=== PATIENT | female | born 1980 | race Caucasian/White ===

== ENCOUNTER 2016-05-22 13:12 | Emergency (ER) | payer OTHER ==
[~2016-05-22] VITALS: Ht 157.5 cm; Wt 86.2 kg
[~2016-05-22 13:12] MED LIST: AZIT250T PO; HYDR5SUS PO; PRED50TA PO; PROAIR HFA8.5 GM INH; SULF1TAB24 PO
[2016-05-22 13:15] VITALS: BP 143/84
--- NOTE | 2016-05-22 13:53 | RAD ---
Left knee radiographs History: Fell at 1245 hours. Comparison: 06/21/2007. Findings: AP, lateral, oblique, and merchant view of the left knee. No acute fracture or dislocation is identified. No joint effusion is seen. Impression: No acute osseous traumatic injury identified.
[2016-05-22] MEDS ORDERED: NEOMY/BACITR/POLYMYXIN OINT PACKET. TP ONE (14:00)
--- NOTE | 2016-05-22 14:00 | PHYS DOC ---
Past Medical History Past Medical History: Bronchitis, Kidney Stone, Sinusitis Past Surgical History: Cholecystectomy, Tubal ligation, Other Additional Past Surgical Histo: renal stent, sinus surgery Alcohol Use: Rarely Drug Use: None Adult General Chief Complaint Chief Complaint: KNEE INJURY HPI HPI Patient is a 36 year old male presents emergency department stating that she was coming off of a sidewalk to walk up the stairs when she fell injuring her left knee. She does have an abrasion noted over the knee part as well as abrasions down the doherty. She states that she is having increased pain around the knee. Denies pain in the lower leg or ankle area. Patient states her last tetanus immunization was 2 years ago. There is no drainage or discharge noted from the site although there is abrasions noted. Patient denies any loss of bowel or bladder. She denies any back pain or discomfort. She denies any numbness or tingling into her lower extremities. Review of Systems Review of Systems Constitutional: Denies fever or chills [] Eyes: Denies change in visual acuity, redness, or eye pain [] HENT: Denies nasal congestion or sore throat [] Respiratory: Denies cough or shortness of breath [] Cardiovascular: No additional information not addressed in HPI [] Musculoskeletal: Denies back pain. Complaint of left knee pain and discomfort. Integument: Denies rash or skin lesions. Patient with 2 abrasions noted on the left knee. Neurologic: Denies headache, focal weakness or sensory changes [] Current Medications Current Medications Current Medications Medications (Trade) Dose Ordered Sig/Travis Start Time Stop Time Status Last Admin Dose Admin Neomycin/ Polymyxin/ Bacitracin (Triple Antibiotic Ointment) 1 pkt 1X ONCE 05/22/16 14:00 05/22/16 14:01 UNV Allergies Allergies Allergies Coded Allergies Type Severity Reaction Last Updated Verified No Known Drug Allergies 01/16/15 No Physical Exam Physical Exam Constitutional: Well developed, well nourished, no acute distress, non-toxic appearance. [] HENT: Normocephalic, atraumatic, bilateral external ears normal, oropharynx moist, no oral exudates, nose normal. [] Eyes: PERRLA, EOMI, conjunctiva normal, no discharge. [] Neck: Normal range of motion, no tenderness, supple, no stridor. [] Cardiovascular:Heart rate regular rhythm Lungs & Thorax: No respiratory distress noted Skin: Warm, dry, no erythema, no rash. [] Back: No tenderness Extremities: Left knee tenderness, no cyanosis, no clubbing, ROM intact, no edema. Patient with positive Tank, positive valgus, positive arcus, peripheral pulses 2+ cap refill brisk less than 2 seconds. Neurologic: Alert and oriented X 3, normal motor function, normal sensory function, no focal deficits noted. [] Psychologic: Affect normal, judgement normal, mood normal. [] Current Patient Data Vital Signs Vital Signs Date Time Temp Pulse Resp B/P Pulse Ox O2 Delivery O2 Flow Rate FiO2 05/22/16 13:15 98.1 122 20 98 Room Air 98.1 EKG EKG [] Radiology/Procedures Radiology/Procedures [] Course & Med Decision Making Course & Med Decision Making Pertinent Labs and Imaging studies reviewed. (See chart for details) Patient provided with hydrocodone here in the emergency department. She'll be placed in a knee immobilizer. The abrasions were cleaned with soap and water and antibiotic ointment applied to the sites. Patient will be discharged home in stable condition since symptoms to return back to emergency department as been provided. Patient will be provided with any movement orthopedic to follow- up within the next 3-5 days. She may also take Tylenol or ibuprofen at home for pain and discomfort. Ice packs on 20 minutes off 20 minutes several times a day and elevation as much as possible. [] Dragon Disclaimer Dragon Disclaimer This electronic medical record was generated, in whole or in part, using a voice recognition dictation system. Departure Departure Impression: Primary Impression: Fall Additional Impression: Knee pain, acute Disposition: 01 HOME, SELF-CARE Condition: STABLE Referrals: NIYAH GÓMEZ (PCP) MARIO VASQUEZ MD Patient Instructions: Abrasion, [id number], Knee Pain, [id number] Additional Instructions: Activity as tolerated. Ice packs on 20 minutes off 20 minutes several times a day. Elevation as much as possible. With a knee immobilizer to help with pain and discomfort until you follow up with orthopedic. Tylenol or ibuprofen for pain and discomfort. Follow-up with orthopedic in the next week. Return back to emergency prior signs symptoms of become worse. Problem Qualifiers PALMIRA ESPARZA NP May 22, 2016 14:00
[2016-05-22] MEDS ORDERED: HYDROCODONE/APAP 5/325MG TABLET. PO ONE (14:15)
== END 2016-05-22 14:14 | disposition home or self-care (01) ==
LOC: ER 13:12
DX: M25.562 Pain in left knee (principal); Z87.442 Personal history of urinary calculi; Z90.49 Acquired absence of other specified parts of digestive tract; Z98.51 Tubal ligation status; Z96.0 Presence of urogenital implants; W10.9XXA Fall (on) (from) unspecified stairs and steps, initial encounter; Y93.01 Activity, walking, marching and hiking; Y99.8 Other external cause status; Y92.480 Sidewalk as the place of occurrence of the external cause
CPT/HCPCS: 29505; 73564; 99284-25

== ENCOUNTER → 2016-07-15 | Outpatient (CLI) | payer OTHER ==
--- NOTE | 2016-07-15 11:11 | KCIC ---
Examination:Bilateral ribs and PA view of the chest HISTORY History of acute bronchitis, cough, left mid lower chest wall pain felt a pop when coughing. COMPARISON Chest x-ray from 04/05/2016. FINDINGS The cardiomediastinal grossly appears unremarkable. There is no acute infiltrate or visualized pneumothorax identified. No evidence of displaced right bilateral rib fractures identified. IMPRESSION 1. No acute cardiopulmonary findings. 2. No evidence of displaced rib fractures identified. Electronically signed by: Tonio Horvath (Jul 15, 2016 11:09:57)
== END | disposition home or self-care (01) ==
LOC: KCIC 09:15
PROVIDERS: ATTEND Physician Assistant Medical
DX: J20.9 Acute bronchitis, unspecified (principal); R07.89 Other chest pain
CPT/HCPCS: 71111

== ENCOUNTER 2016-08-18 18:41 | Emergency (ER) | payer OTHER ==
[~2016-08-18] VITALS: Ht 157.5 cm; Wt 86.2 kg
[2016-08-18 19:02] VITALS: BP 142/96
[2016-08-18] MEDS ORDERED: NAPR550T PO (19:29)
[2016-08-18] MEDS ORDERED: HYDR-971 PO (19:29)
[2016-08-18] MEDS ORDERED: ORPH100T PO (19:29)
--- NOTE | 2016-08-18 19:29 | PHYS DOC ---
Past Medical History Past Medical History: Bronchitis, Kidney Stone, Sinusitis Past Surgical History: Cholecystectomy, Tubal ligation, Other Additional Past Surgical Histo: renal stent, sinus surgery Alcohol Use: Rarely Drug Use: None Adult General Chief Complaint Chief Complaint: LOWER BACK PAIN OR INJURY HPI HPI Patient is a 36 year old obese female who comes emergency Department today with a complaint of atraumatic left lower back pain that essentially began last night when she was bending over and folding laundry. Patient states that she attempted to get out of bed this morning and felt a tightening and pain in her left lower back. Patient does have a history of intermittent low back pain with sciatica. She states that this pain does not radiate. She denies saddle anesthesia or incontinence of urine and bowel. Patient denies history of spinal column fractures or spinal cord injuries. She denies history of neuromuscular diseases. Review of Systems Review of Systems Constitutional: Denies fever or chills [] Eyes: Denies change in visual acuity, redness, or eye pain [] HENT: Denies nasal congestion or sore throat [] Respiratory: Denies cough or shortness of breath [] Cardiovascular: No additional information not addressed in HPI [] GI: Denies abdominal pain, nausea, vomiting, bloody stools or diarrhea [] : Denies dysuria or hematuria [] Musculoskeletal: Denies back pain or joint pain [] Integument: Denies rash or skin lesions [] Neurologic: Denies headache, focal weakness or sensory changes [] Endocrine: Denies polyuria or polydipsia [] Current Medications Current Medications Current Medications Medications (Trade) Dose Ordered Sig/Travis Start Time Stop Time Status Last Admin Dose Admin Ketorolac Tromethamine (Toradol Im) 60 mg 1X ONCE 08/18/16 19:30 08/18/16 19:31 DC 08/18/16 19:30 60 MG Orphenadrine Citrate (Norflex) 60 mg 1X ONCE 08/18/16 19:30 08/18/16 19:31 DC 08/18/16 19:30 60 MG Allergies Allergies Allergies Coded Allergies Type Severity Reaction Last Updated Verified No Known Drug Allergies 01/16/15 No Physical Exam Physical Exam Constitutional: Well developed, well nourished, mild distress, non-toxic appearance. HENT: Normocephalic, atraumatic, bilateral external ears normal, oropharynx moist, no oral exudates, nose normal. [] Eyes: PERRLA, EOMI, conjunctiva normal, no discharge. [] Neck: Normal range of motion, no tenderness, supple, no stridor. [] Cardiovascular:Heart rate regular rhythm, no murmur [] Lungs & Thorax: Bilateral breath sounds clear to auscultation [] Abdomen: Bowel sounds normal, soft, no tenderness, no masses, no pulsatile masses. [] Skin: Warm, dry, no erythema, no rash. [] Back: Patient's back is normal in appearance. There are no overlying skin lesions suggestive of shingles. There is no CVA tenderness. There is tenderness to palpation to the left paraspinous soft tissues at the level of L3-S1. There is no palpable defect, deformity or spasm. Patient's I have a midline tenderness or tenderness to the right side of her back. Extremities: No tenderness, no cyanosis, no clubbing, ROM intact, no edema. [] Neurologic: Alert and oriented X 3, normal motor function, normal sensory function, no focal deficits noted. [] Psychologic: Affect normal, judgement normal, mood normal. [] Current Patient Data Vital Signs Vital Signs Date Time Temp Pulse Resp B/P Pulse Ox O2 Delivery O2 Flow Rate FiO2 08/18/16 19:02 98.2 112 18 98 Room Air 98.2 EKG EKG [] Radiology/Procedures Radiology/Procedures [] Course & Med Decision Making Course & Med Decision Making Pertinent Labs and Imaging studies reviewed. (See chart for details) [] Dragon Disclaimer Dragon Disclaimer This electronic medical record was generated, in whole or in part, using a voice recognition dictation system. Departure Departure Impression: Primary Impression: Lumbosacral strain Disposition: 01 HOME, SELF-CARE Condition: GOOD Referrals: NO PCP (PCP) Patient Instructions: Lumbosacral Strain Additional Instructions: 1. Take the medications as prescribed. 2. Review the discharge instructions provided for self-care and reasons to return to the emergency department. 3. Contact your primary care provider in the morning to schedule follow-up appointment to be seen by Tuesday or Tuesday of next week. Scripts Hydrocodone/Apap 5-325 ([place] 5-325 Tablet)1 Each Tablet1 Tab PO PRN Q6HRS PRN PAIN #15 TAB Prov:TANO AMAYA 08/18/16 Orphenadrine Citrate 100 Mg Tablet.er100 Mg PO twice a day muscle relaxer #14 Prov:TANO AMAYA 08/18/16 Naproxen Sodium (Anaprox Ds)550 Mg [id number] Mg PO twice a day back pain #20 Prov:TANO AMAYA 08/18/16 Problem Qualifiers Primary Impression: Lumbosacral strain Encounter type: initial encounter Qualified Code: S39.012A - Strain of muscle, fascia and tendon of lower back, initial encounter TANO AMAYA Aug 18, 2016 19:29
[2016-08-18] MEDS ORDERED: KETOROLAC TROMETHAMINE 60 MG/2 ML INJ. IM ONE (19:30)
[2016-08-18] MEDS ORDERED: ORPHENADRINE CITRATE 60 MG/2 ML VIAL. IM ONE (19:30)
[2016-08-19] MEDS ORDERED: DIAZ5TAB PO (13:05)
== END 2016-08-18 19:35 | disposition home or self-care (01) ==
LOC: ER 18:41
DX: S39.012A Strain of muscle, fascia and tendon of lower back, initial encounter (principal); Z90.49 Acquired absence of other specified parts of digestive tract; Z98.51 Tubal ligation status; Z87.442 Personal history of urinary calculi; X50.9XXA Other and unspecified overexertion or strenuous movements or postures, initial encounter; Y93.89 Activity, other specified; Y92.89 Other specified places as the place of occurrence of the external cause; Y99.8 Other external cause status
CPT/HCPCS: 96372; 99284; J1885; J2360

== ENCOUNTER 2016-08-19 09:24 | Emergency (ER) | payer OTHER ==
[~2016-08-19 09:24] MED LIST changes: +HYDR-971 PO; +NAPR550T PO; +ORPH100T PO
[2016-08-19 10:50] VITALS: BP 142/106
[2016-08-19] MEDS ORDERED: ORPHENADRINE CITRATE 60 MG/2 ML VIAL. IM ONE (12:00)
[2016-08-19] MEDS ORDERED: KETOROLAC TROMETHAMINE 60 MG/2 ML INJ. IM ONE (12:00)
--- NOTE | 2016-08-19 12:54 | PHYS DOC ---
Past Medical History Past Medical History: Bronchitis, Kidney Stone, Sinusitis Past Surgical History: Cholecystectomy, Tubal ligation, Other Additional Past Surgical Histo: renal stent, sinus surgery Smoking: Less than 1pk/day Alcohol Use: Rarely Drug Use: None Adult General Chief Complaint Chief Complaint: LOWER BACK PAIN OR INJURY HPI HPI Patient is a 36 year old female who presents with left-sided low back pain starting yesterday. The pain radiates to the left hip. She denies any injury to her back. She has had nausea without vomiting due to the pain. She denies incontinence or saddle anesthesia. She has not had any abdominal pain, urinary symptoms, focal weakness, or numbness. The patient has a history of left hip and knee arthritis and left-sided sciatica. Patient was seen here yesterday for her back pain and given Norflex and Toradol in the emergency department. She states that this helps to relieve her pain. She was prescribed Newborn, Flexeril, and naproxen for home. She states that the pain became worse again this morning when she tried to get out of bed. She denies any new injuries. Her PCP is Dr. Mckoy. Review of Systems Review of Systems Constitutional: Denies fever or chills. [] Eyes: Denies change in visual acuity, redness, or eye pain. [] HENT: Denies ear pain, nasal congestion or sore throat. [] Respiratory: Denies cough or shortness of breath. [] Cardiovascular: Denies chest pain, palpitations or edema. [] GI: Denies abdominal pain, vomiting, bloody stools or diarrhea. Reports nausea. : Denies dysuria, hematuria or urinary frequency. [] Musculoskeletal: Denies joint pain. Reports left-sided low back pain. Integument: Denies rash or skin lesions. [] Neurologic: Denies headache, focal weakness or sensory changes. Denies incontinence or saddle anesthesia. Endocrine: Denies polyuria or polydipsia. [] Psych: Denies anxiety or depression. [] All systems reviewed and negative unless otherwise stated in the HPI. Current Medications Current Medications Current Medications Medications (Trade) Dose Ordered Sig/Travis Start Time Stop Time Status Last Admin Dose Admin Ketorolac Tromethamine (Toradol Im) 60 mg 1X ONCE 08/19/16 12:00 08/19/16 12:03 DC 08/19/16 12:00 60 MG Morphine Sulfate 4 mg 1X ONCE 08/19/16 13:45 08/19/16 13:46 08/19/16 13:12 4 MG Orphenadrine Citrate (Norflex) 60 mg 1X ONCE 08/19/16 12:00 08/19/16 12:03 DC 08/19/16 12:00 60 MG Allergies Allergies Allergies Coded Allergies Type Severity Reaction Last Updated Verified No Known Drug Allergies 01/16/15 No Physical Exam Physical Exam Constitutional: Well developed, well nourished, no acute distress, non-toxic appearance. [] HENT: Normocephalic, atraumatic, oropharynx moist. [] Eyes: PERRLA, EOMI, conjunctiva normal, no discharge. [] Neck: Normal range of motion, no tenderness, supple, no stridor. [] Cardiovascular: Heart rate regular rhythm, no murmur. [] Lungs & Thorax: Bilateral breath sounds clear to auscultation without wheezes, rales, or rhonchi. [] Abdomen: Bowel sounds normal, soft, no tenderness, no masses, no pulsatile masses. [] Skin: Warm, dry, no erythema, no rash. [] Back: Lumbar midline tenderness, no CVA tenderness. Left lumbar paraspinal muscle tenderness and spasm. Extremities: No tenderness, ROM intact, no edema. Distal pulses equal bilaterally. Light touch sensation intact proximally and distally in the lower extremities and equal bilaterally. Neurologic: Alert and oriented X 3, normal motor function, normal sensory function, no focal deficits noted. [] Psychologic: Affect normal, judgement normal, mood normal. [] Current Patient Data Vital Signs Vital Signs Date Time Temp Pulse Resp B/P Pulse Ox O2 Delivery O2 Flow Rate FiO2 08/19/16 10:50 98.7 106 18 99 Room Air 98.7 EKG EKG [] Radiology/Procedures Radiology/Procedures [] Course & Med Decision Making Course & Med Decision Making Pertinent Labs and Imaging studies reviewed. (See chart for details) [] Dragon Disclaimer Dragon Disclaimer This electronic medical record was generated, in whole or in part, using a voice recognition dictation system. Departure Departure Impression: Primary Impression: Lumbosacral strain Disposition: HOME, SELF-CARE Condition: STABLE Referrals: NO PCP (PCP) Patient Instructions: Back Pain, Adult, [id number] Additional Instructions: Please take the prescribed muscle relaxer as directed. Do not drive or operate heavy machinery while taking pain medication or muscle relaxers. Please continue to take the hydrocodone and naproxen prescribed yesterday for your back pain. Please follow-up with your primary care doctor if your back pain continues. Return to the emergency department if you have any new or concerning symptoms. Scripts Diazepam (Valium)5 Mg Tablet5 Mg PO TID #20 TAB Prov:JACOB DIAL 08/19/16 Problem Qualifiers Primary Impression: Lumbosacral strain Encounter type: subsequent encounter Qualified Code: S39.012D - Strain of muscle, fascia and tendon of lower back, subsequent encounter JACOB DIAL Aug 19, 2016 12:54
[2016-08-19] MEDS ORDERED: DIAZ5TAB PO (13:05)
[2016-08-19] MEDS ORDERED: MORPHINE SULFATE 10 MG/ML VIAL. IM ONE (13:45)
[2016-08-19] MEDS ORDERED: MORPHINE SULFATE 4 MG/ML DISP.SYRIN. IM ONE (13:45)
== END 2016-08-19 13:20 | disposition home or self-care (01) ==
LOC: ER 09:24
DX: S39.012A Strain of muscle, fascia and tendon of lower back, initial encounter (principal); R11.0 Nausea; M17.9 Osteoarthritis of knee, unspecified; M16.12 Unilateral primary osteoarthritis, left hip; F17.200 Nicotine dependence, unspecified, uncomplicated; Z87.442 Personal history of urinary calculi; Z96.0 Presence of urogenital implants; X58.XXXA Exposure to other specified factors, initial encounter; Y93.89 Activity, other specified; Y92.89 Other specified places as the place of occurrence of the external cause; Y99.8 Other external cause status
CPT/HCPCS: 96372; 99284; J1885; J2270; J2360

== ENCOUNTER 2016-10-18 09:31 | Emergency (ER) | payer OTHER ==
[~2016-10-18] VITALS: Ht 157.5 cm; Wt 127.0 kg
[~2016-10-18 09:31] MED LIST changes: +DIAZ5TAB PO
[2016-10-18] MEDS ORDERED: MORPHINE SULFATE 4 MG/ML DISP.SYRIN. IM ONE (10:15)
[2016-10-18] MEDS ORDERED: IBUPROFEN 800 MG TABLET. PO ONE (10:15)
--- NOTE | 2016-10-18 10:16 | PHYS DOC ---
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 She states that she has 5 of them. She states over the weekend she's had increased pain and discomfort. She states that she took her hydrocodone and a muscle relaxer at 1:00 this morning with minimal relief. She states that she take ibuprofen around 3 AM. She states she has had no relief of pain or discomfort. Denies any numbness or tingling down to her lower extremities. She denies any trauma or injury. She denies any loss of bowel or bladder. Review of Systems Review of Systems Constitutional: Denies fever or chills [] Eyes: Denies change in visual acuity, redness, or eye pain [] HENT: Denies nasal congestion or sore throat [] Respiratory: Denies cough or shortness of breath [] Cardiovascular: No additional information not addressed in HPI [] GI: Denies abdominal pain, nausea, vomiting, bloody stools or diarrhea [] : Denies dysuria or hematuria [] Musculoskeletal: lower back pain denies joint pain [] Integument: Denies rash or skin lesions [] Neurologic: Denies headache, focal weakness or sensory changes [] Endocrine: Denies polyuria or polydipsia [] Allergies Allergies Allergies Coded Allergies Type Severity Reaction Last Updated Verified No Known Drug Allergies 01/16/15 No Physical Exam Physical Exam Constitutional: Well developed, well nourished, no acute distress, non-toxic appearance. [] HENT: Normocephalic, atraumatic, bilateral external ears normal, oropharynx moist, no oral exudates, nose normal. [] Eyes: PERRLA, EOMI, conjunctiva normal, no discharge. [] Neck: Normal range of motion, no tenderness, supple, no stridor. [] Cardiovascular:Heart rate regular rhythm, no murmur [] Lungs & Thorax: Bilateral breath sounds clear to auscultation [] Skin: Warm, dry, no erythema, no rash. [] Back: right lower back tenderness Extremities: No tenderness, no cyanosis, no clubbing, ROM intact, no edema. Peripheral pulses 2+ cap refill brisk < 2 seconds Neurologic: Alert and oriented X 3, normal motor function, normal sensory function, no focal deficits noted. [] Psychologic: Affect normal, judgement normal, mood normal. [] Current Patient Data Vital Signs Vital Signs Date Time Temp Pulse Resp B/P (MAP) Pulse Ox O2 Delivery O2 Flow Rate FiO2 10/18/16 09:45 98.3 110 20 97 Room Air 98.3 EKG EKG [] Radiology/Procedures Radiology/Procedures [] Course & Med Decision Making Course & Med Decision Making Pertinent Labs and Imaging studies reviewed. (See chart for details) Patient will be provided with Morphine and ibuprofen for pain and discomfort. She will be discharged home in stable condition. Signs and symptoms to return to emergency department has been provided. Patient will continue with home medications. She was instructed to call her PCP for further pain management. Patient agrees with discharge instructions, treatment regimen and followup recommendations. [] Dragon Disclaimer Dragon Disclaimer This electronic medical record was generated, in whole or in part, using a voice recognition dictation system. Departure Departure Impression: Primary Impression: Chronic back pain Disposition: HOME, SELF-CARE Condition: STABLE Referrals: PALMA CARDOZA PA-C (PCP) Patient Instructions: Chronic Back Pain Additional Instructions: Activity as tolerated Continue your home medications as prescribed Ice packs to the back area on 20 minutes and off 20 minutes several times a day Keep your appointment with physical therapy Followup with your primary care provider in 3-5 days for further pain control Return to emergency department as needed for signs and symptoms that become worse. PALMIRA ESPARZA [employer] Oct 18, 2016 10:16
[2016-10-18 10:30] VITALS: BP 139/87
== END 2016-10-18 10:43 | disposition home or self-care (01) ==
LOC: ER 09:31
DX: G89.29 Other chronic pain (principal); M54.5 Low back pain; K21.9 Gastro-esophageal reflux disease without esophagitis; Z87.442 Personal history of urinary calculi
CPT/HCPCS: 96372; 99283; J2270

== ENCOUNTER → 2016-11-26 | Outpatient (CLI) | payer OTHER ==
[~2016-11-26] MED LIST changes: +CHLO750T PO; +GABA-586 PO; +HYDR-2762 PO; +IBUP-1027 PO; +LIRAGLUTIDE; +SUMA100T4 PO; +TOPI50TA8 PO
--- NOTE | 2016-11-27 01:21 | PAIN ---
DATE OF SERVICE: 11/26/2016 INITIAL CONSULTATION FOR PAIN CLINIC CHIEF COMPLAINT: Low back, bilateral lower extremity pain, right greater than left. HISTORY OF PRESENT ILLNESS: This is a 36-year-old female who presents with history of pain in the low back radiating to bilateral lower extremities, mostly on the right side, anterior lateral thigh, medial thigh and into the lower leg, in the medial aspect, also on the posterior thighs to some extent, this came up in about 08/2016 without any significant injury or accident that she is aware of, but it has been getting worse over time. The patient has had physical therapy, which became painful, where she could not complete it after about 3 weeks. She is doing daily home exercises currently. Did have a trigger point injection with her primary care's office, which was not helpful as well. The patient reports that her pain is aching and dull, radiating, shooting, throbbing, constant and burning in the low back, radiating to the posterior lower extremities as noted. The patient reports it awakens her from sleep about 3-4 times at night, does not affect her bowel or bladder control, but does affect her ability to walk and she has significant fatigability, cannot go more than about 10-15 minutes on her feet without having to stop and rest. The patient reports her disability rating from 0 to 10, 10 being the worst, is a 7 with family and home responsibilities, 9 with recreation and social activity, 5 with occupation and life support activities, 6 with sexual behavior and self-care. The patient has been taking hydrocodone as well as Lorzone and gabapentin, all of which only decrease the pain by about 10%. The patient reports no other modalities at this time, no bowel or bladder incontinence or other deficits. The patient did have an MRI scan of the lumbar spine dated 08/23/2016 which shows L4-L5 a 2 mm disk bulge without spinal stenosis or nerve root compression, L5-S1 shows a 1 mm minimal disk bulge without spinal stenosis or nerve root compression. Rest of the exam was essentially normal with mild spinal stenosis at T10-T11 with a slight flattening of the spinal cord due to disk bulge. PAST MEDICAL HISTORY: Significant for arthritis, gastroesophageal reflux, irritable bowel syndrome, obesity, cigarette smoking half a pack a day for 10 years, patient continues to smoke. PREVIOUS SURGERY: Include cholecystectomy in 1998, tubal ligation in 2005, renal stones and sinus surgery in 2011. CURRENT MEDICATIONS: Include albuterol inhaler, hydrocodone 7.5 mg, gabapentin 300 mg, chlorzoxazone 750 mg, ibuprofen 400 mg, sumatriptan 100 mg and topiramate 50 mg daily. ALLERGIES: The patient has no known drug allergies. FAMILY HISTORY: Significant for no major medical problems or conditions that she is aware of. SOCIAL HISTORY: The patient still smokes about half pack a day, has for the past 10 years. Drinks alcohol one to two times a year at the most. The patient is single, lives with 3 of her children at home. Works at a sitting down desk job. REVIEW OF SYSTEMS: The patient's review of systems is positive for those items mentioned in history of present illness. All systems reviewed and otherwise negative. It is complete, full, and well documented on the patient's chart. PHYSICAL EXAMINATION: VITAL SIGNS: The patient's blood pressure 129/93, pulse 103, respirations 18, temperature is 98.1 degrees Fahrenheit, height is 5 feet 2 inches, weighs 291 pounds. GENERAL: The patient is awake, alert, oriented, appropriate, very pleasant demeanor. HEENT: Head shows normocephalic, atraumatic. Extraocular movements are intact and symmetrical. Oral cavity shows mucous membranes moist and pink. Dentition is intact. NECK: Shows anterior throat supple without palpable lymphadenopathy noted. Swallow reflex is symmetrical. CHEST: Shows normal on inspection. Breath sounds clear to auscultation bilaterally. HEART: Shows S1 and S2 clear. ABDOMEN: Soft, nontender, nondistended. No palpable organomegaly, no rebound or guarding demonstrated, it is obese on appearance. BACK: The patient's back shows spine grossly in midline. Slight exaggeration of thoracic kyphosis and mild flattening of lumbar lordotic curvature. EXTREMITIES: Lower extremities showed deep tendon reflexes at 1+ in the patellar and tendo calcaneus tendons are equal. Motor exam is strong with 5/5 dorsiflexion, extension, quadriceps and hamstring flexion and intact. Peripheral pulses are 1+ posterior tibial and dorsalis pedis pulses. No peripheral edema is noted. No clubbing, no cyanosis. Lower extremities are warm and dry to touch, equal in color and appearance. Straight leg raising has been negative for reproduction of radicular symptoms bilaterally. Gaenslen's and Ramiro's maneuvers are negative bilaterally as well. The patient is able to stand, stand on her toes without significant difficulty or loss of balance. She is walking with a normal-appearing gait for short distance in the office, does not use any assistive devices such as canes or walkers to ambulate. IMPRESSION: 1. This is a 36-year-old female with about 3 month history of increasing low back pain, radicular pain, right greater than left. 2. MRI scan of the lumbar spine as noted. 3. Obesity. 4. Arthritis. 5. Cigarette smoking. PLAN: Options were discussed with the patient including conservative medical management, physical therapy, interventional techniques. She would like to pursue interventional techniques. We discussed a lumbar epidural steroid injection; however, the procedure room and was down today when she is here and will have that rescheduled. Also, we will order water therapy ____ Physical Therapy Department as this may help not only with weight loss, but also with increased strengthening and support of her lumbar spine with exercise. The patient is willing to pursue this. The patient requested pain medication as well. We discussed that we would not do this for prolonged period and will give her a one-time prescription of hydrocodone 7.5 mg with instruction and side effects to be aware of discussed. The patient will follow up with her primary care provider for any further narcotic needs and will return for her injection as scheduled. HERMINIA MCMILLAN MD DR: LYNN/davin JOB#: [id number] / [id number] PALMA Christie PA-C
== END | disposition home or self-care (01) ==
LOC: PNCL 11:29
PROVIDERS: ATTEND Anesthesiology
DX: M51.36 Other intervertebral disc degeneration, lumbar region (principal)
CPT/HCPCS: 99214

== ENCOUNTER → 2016-12-07 | Outpatient (CLI) | payer OTHER ==
[~2016-12-07] MED LIST changes: +IOHEXOL 180 MG/ML 10 ML VIAL. ONE; +methylPREDNISolone ACETATE 40 MG/ML VIAL. ONE; +methylPREDNISolone ACETATE 80 MG/ML VIAL. ONE
--- NOTE | 2016-12-07 11:47 | PAIN ---
DATE OF SERVICE: 12/07/2016 PROGRESS NOTE FOR PAIN CLINIC DIAGNOSIS: Lumbar radiculopathy with lumbar degenerative disk disease. HISTORY OF PRESENT ILLNESS: The patient is a 36-year-old female who returns for followup status post initial evaluation and returns today for a lumbar epidural steroid injection we discussed at her first visit. The patient reports that she is still having significant pain in the low back, bilateral lower extremities, worse on the right than the left, but present bilaterally that is from 5 on scale of 10 as high as 10 on a scale of 10 with activity, worse with standing, walking, changing positions, reports it is burning, cramping, stabbing type, shooting, aching and dull, radiating into the legs as well, mostly posteriorly and laterally into the thighs, medial thighs, anterior thighs; again worse on the right than the left, but present bilaterally. The patient reports no new motor or sensory deficits, no new bowel or bladder incontinence or other complaints. PHYSICAL EXAMINATION: VITAL SIGNS: The patient's blood pressure 128/70, pulse 94, respirations 18, temperature 98.2 degrees Fahrenheit, weight is 289 pounds. GENERAL: The patient is awake, alert, oriented, appropriate, very pleasant demeanor. HEENT: Shows normocephalic, atraumatic. Extraocular movements are intact and symmetrical. Oral cavity, mucous membranes are moist and pink. Dentition is intact. NECK: Shows anterior throat supple without palpable lymphadenopathy noted. Swallow reflex is symmetrical. CHEST: Shows normal on inspection. Breath sounds are clear to auscultation bilaterally. HEART: Shows S1 and S2 clear. ABDOMEN: Soft, nontender, nondistended. No palpable organomegaly. No rebound or guarding demonstrated. BACK: The patient's back shows spine grossly in the midline. Lumbar paraspinous muscle shows symmetrical on inspection; with palpation, shows some moderate tenderness with palpation bilaterally throughout the upper, middle and lower distribution of paraspinous muscles without radiation. The patient's back shows good rotational motion; however, both laterally as well as extension and flexion without significant difficulty. No tenderness over the sacrum or sacroiliac regions. EXTREMITIES: Lower extremities showed deep tendon reflexes, 1+ in the patellar and tendo calcaneus tendons are equal. Motor exam is strong with 5/5 dorsiflexion, extension, quadriceps, and hamstring flexion. Options were discussed with the patient and the patient's old chart was reviewed as her current medication regimen updated. Current review of systems updated today as well. We will proceed with a lumbar epidural steroid injection today with fluoroscopic guidance. Risks were again discussed including, but not limited to bleeding, infection, possibility of epidural hematoma and subsequent neurological compromise, dural puncture, headaches, spinal cord and/or nerve damage, side effects of steroid medication and poor results regarding pain control. The patient understands and wishes to proceed. The patient will return to clinic in approximately 2 weeks for followup. She was counseled on return appointment, activity level and side effects to be aware of. DIAGNOSIS: Lumbar radiculopathy with lumbar degenerative disk disease. PROCEDURE: Lumbar epidural steroid injection using C-arm fluoroscopic guidance under sterile prep and drape, a translaminar approach at the L4-5 level. Medications injected total of 120 mg of Depo-Medrol plus 10 mL preservative-free normal saline and 2 mL of Isovue for contrast. CONDITION ON DISCHARGE: Stable. The patient tolerated procedure well, had no complications. HERMINIA MCMILLAN MD DR: LYNN/davin JOB#: [id number] / [id number]
== END | disposition home or self-care (01) ==
LOC: PNCL 07:39
PROVIDERS: ATTEND Anesthesiology
DX: M51.16 Intervertebral disc disorders with radiculopathy, lumbar region (principal)
CPT/HCPCS: 62323; J1030; J1040

== ENCOUNTER → 2016-12-21 | Outpatient (CLI) | payer OTHER ==
[~2016-12-21] MED LIST changes: +HYDR-2758 PO
--- NOTE | 2016-12-21 10:35 | PN ---
DATE: 12/21/2016 PROGRESS NOTE FOR PAIN CLINIC DIAGNOSES: Lumbar radiculopathy with lumbar degenerative disk disease. HISTORY OF PRESENT ILLNESS: The patient is a 36-year-old female who returns for followup status post lumbar epidural steroid injection x 1. The patient reports about 40% improvement after the injection with still significant decrease in pain to this day. The patient reports still pain in the low back and bilateral lower extremities, right side greater than left without new motor or sensory deficits, no new bowel or bladder incontinence. The patient rates her pain as a 9 on a scale of 10 at its worst, 5 at the least, worse with walking, standing, exercising, changing positions, better with sitting or lying down, reports it awakens her from sleep occasionally, but she can reposition and get back to sleep fairly easily. The patient reports the pain is aching, sharp, tight, shooting, radiating, burning becomes unbearable with walking and standing for greater than 20-30 minutes. The patient is scheduled to start physical therapy with water therapy later this week. The patient reports no new motor or sensory deficits, no new bowel or bladder incontinence. PHYSICAL EXAMINATION: VITAL SIGNS: The patient's blood pressure is 137/86, pulse 96, respirations 18, temperature 99.1 degrees Fahrenheit, weight is 294 pounds. GENERAL: The patient is awake, alert, oriented, appropriate, has a very pleasant demeanor. HEENT: Head shows normocephalic, atraumatic. Extraocular movements are intact, symmetrical. Oral cavity shows mucous membranes moist and pink. Dentition is intact. NECK: Shows anterior throat supple. CHEST: Shows breath sounds clear to auscultation bilaterally. HEART: Shows S1 and S2 clear. ABDOMEN: Obese, soft, nontender, nondistended. BACK: Shows spine grossly in the midline. With inspection, the paraspinous musculature, lumbar distribution is symmetrical. With palpation shows moderate tenderness bilaterally, but only diffusely without radiation. No tenderness over the sacrum or sacroiliac regions. The patient shows good rotational motion of the lumbar spine, both laterally as well as extension and flexion without difficulty. EXTREMITIES: Lower extremities show deep tendon reflexes 1+ in the patellar and tendo calcaneus tendons are equal. Motor exam is 5/5 with dorsiflexion, extension, quadriceps and hamstring flexion and symmetrical. Peripheral pulses are 1+ bilaterally posterior tibial. Options were discussed with the patient. The patient's old chart was reviewed as her current medication regimen and updated. Current review of systems updated today as well. We will proceed with a second lumbar epidural steroid injection today with fluoroscopic guidance. Risks were again discussed including, but not limited to bleeding, infection, possibility of epidural hematoma, subsequent neurological compromise, dural punctures, headaches, spinal cord and/or nerve damage, side effects of steroid medication and poor results regarding pain control. The patient understands and wishes to proceed. The patient will return to clinic in approximately 2 weeks for followup, was counseled on return appointment, activity level and side effects to be aware of. The patient will keep the appointment with water therapy later this week, was encouraged to increase her activity as tolerated. DIAGNOSES: Lumbar radiculopathy with lumbar degenerative disease. PROCEDURE: Lumbar epidural steroid injection in translaminar approach at the L4-L5 level using C-arm fluoroscopic guidance under sterile prep and drape using local anesthetic. Medication injected is 120 mg Depo-Medrol plus 10 mL of preservative-free normal saline and 2 mL of Isovue for contrast. CONDITION AT DISCHARGE: Stable. The patient tolerated the procedure well, had no complications. HERMINIA MCMILLAN MD DR: LYNN/davin JOB#: [id number] / [id number]
== END | disposition home or self-care (01) ==
LOC: PNCL 07:41
PROVIDERS: ATTEND Anesthesiology
DX: M51.16 Intervertebral disc disorders with radiculopathy, lumbar region (principal)
CPT/HCPCS: 62323; J1030; J1040

== ENCOUNTER → 2017-01-04 | Outpatient (CLI) | payer OTHER ==
[~2017-01-04] MED LIST changes: -IOHEXOL 180 MG/ML 10 ML VIAL. ONE; -methylPREDNISolone ACETATE 40 MG/ML VIAL. ONE; -methylPREDNISolone ACETATE 80 MG/ML VIAL. ONE
--- NOTE | 2017-01-04 08:55 | PAIN ---
DATE OF SERVICE: 01/04/2017 DIAGNOSES: Lumbar radiculopathy with lumbar degenerative disk disease. HISTORY OF PRESENT ILLNESS: The patient is a 36-year-old female who returns for followup status post lumbar epidural steroid injection x 2. The patient reports she did well after the first injection, but the second injection was more or less equivocal with about 40% decrease in pain overall in her low back and bilateral lower extremities. The patient reports that her pain has been increasing. She is having some spasticity to the point where she presented to the Emergency Department a few days ago and they gave her some IM Toradol and Dilaudid, which decreased the pain and she was able to get some sleep after this. She reports the pain is aching, sharp, shooting and tight, becoming unbearable and severe in the low back, mid back, radiating to bilateral posterior gluteus, posterior thighs. Rates 10 on a scale of 10 at its worst, with 8 currently, is at least a 7 on a scale of 10. The patient reports no new motor or sensory deficits, no new bowel or bladder incontinence. Again, she started water therapy later today. We had ordered this for her on her last visit and is looking forward to this. PHYSICAL EXAMINATION: VITAL SIGNS: The patient's blood pressure 119/77, pulse 93, respirations 18, temperature 98.2 degrees Fahrenheit, height is 5 feet 2-1/2 inches, weighs 296 pounds. GENERAL: The patient is awake, alert, oriented, appropriate, very pleasant demeanor. HEENT: Head shows normocephalic, atraumatic. Extraocular movements are intact and symmetrical. Oral cavity shows mucous membranes moist and pink. Dentition is intact. NECK: Shows anterior throat supple without palpable lymphadenopathy noted. Swallow reflex is symmetrical. CHEST: Shows normal on inspection. Breath sounds are clear to auscultation bilaterally. HEART: Shows S1 and S2 clear. ABDOMEN: Obese, soft, nontender, nondistended. BACK: Shows spine grossly in the midline. Slight exaggeration of thoracic kyphosis, mild flattening of lumbar lordotic curvature. Lumbar paraspinous musculature shows symmetrical on inspection; with palpation shows some moderate tenderness throughout the upper, middle and lower distribution of paraspinous muscles; very firm, very tight without specific trigger points or radiation but significant pain bilaterally and tender. EXTREMITIES: Lower extremities showed deep tendon reflexes 1+ in the patellar and tendo calcaneus tendons are equal. Motor exam is strong with 5/5 dorsiflexion, extension, quadriceps and hamstring flexion. Peripheral pulses are 1+. No peripheral edema is noted. Options were discussed with the patient and the patient's old chart was reviewed as her current medication regimen updated. Current review of systems updated today as well and we will hold on any further injections at this time. She will maintain her physical therapy with water therapy as scheduled later today and follow up with this after about 3-4 weeks of therapy. We also discussed weight loss and its importance in her back pain and overall health. The patient understands and agrees, will follow up on as-needed basis at this time. HERMINIA MCMILLAN MD DR: LYNN/davin JOB#: [id number] / [id number]
== END | disposition home or self-care (01) ==
LOC: PNCL 08:32
PROVIDERS: ATTEND Anesthesiology
DX: M51.16 Intervertebral disc disorders with radiculopathy, lumbar region (principal)
CPT/HCPCS: 99212

== ENCOUNTER 2017-04-19 22:26 | Emergency (ER) | payer OTHER ==
[~2017-04-19] VITALS: Ht 157.5 cm; Wt 136.5 kg
[~2017-04-19 22:26] MED LIST changes: +NAPR-682 PO; -NAPR550T PO
[2017-04-19 22:47] VITALS: BP 141/88
[2017-04-19] MEDS ORDERED: oxyCODONE/APAP 10/325 1 TAB TABLET PO ONE (23:30)
--- NOTE | 2017-04-19 23:59 | PHYS DOC ---
Past Medical History Past Medical History: Bronchitis, GERD, Kidney Stone, Sciatica, Sinusitis Additional Past Medical Histor: bulging discs, OSTEOARTHRITIS, STENOSIS Past Surgical History: Cholecystectomy, Tubal ligation, Other Additional Past Surgical Histo: renal stent, sinus surgery Additional Information: 1/2-1 PACK/DAY Alcohol Use: Rarely Drug Use: None Adult General Chief Complaint Chief Complaint: PAIN CONTROL HPI HPI Patient is a 37 year old female who presents with exacerbation of her chronic pain. The patient is seen by primary care as well as a pain clinic at . She has had multiple injections and procedures to her back. She states that she had a procedure approximately one week ago and states that her pain is worsened since then. She states that she did try to call the provider and received an email back stating that she needed to the emergency room if she was in pain. The patient states that she took her last hydrocodone that she had at home today with little to no relief. She states that the doctor has decreased her from oxycodone to hydrocodone and she feels that the hydrocodone does not work. Review of Systems Review of Systems Constitutional: Denies fever or chills [] Respiratory: Denies cough or shortness of breath [] Cardiovascular: No additional information not addressed in HPI [] Musculoskeletal: See history of present illness Integument: Denies rash or skin lesions [] Neurologic: Denies headache, focal weakness or sensory changes [] Endocrine: Denies polyuria or polydipsia [] All other systems were reviewed and found to be within normal limits, except as documented in this note. Current Medications Current Medications Current Medications Medications (Trade) Dose Ordered [facility] [place] Start Time Stop Time Status Last Admin Dose Admin Oxycodone/ Acetaminophen (Percocet 10/325) 1 tab 1X ONCE 04/19/17 23:30 04/19/17 23:31 DC 04/19/17 23:36 1 TAB Allergies Allergies Allergies Coded Allergies Type Severity Reaction Last Updated Verified No Known Drug Allergies 01/16/15 No Physical Exam Physical Exam Constitutional: Well developed, well nourished, no acute distress, non-toxic appearance. [] Neck: Normal range of motion, no tenderness, supple, no stridor. [] Cardiovascular:Heart rate regular rhythm, no murmur [] Lungs & Thorax: Bilateral breath sounds clear to auscultation [] Skin: Warm, dry, no erythema, no rash. [] Back: Diffuse pain across the patient's lumbar spine and bilateral SI joints Extremities: No tenderness, no cyanosis, no clubbing, ROM intact, no edema. [] Neurologic: Alert and oriented X 3, normal motor function, normal sensory function, no focal deficits noted. [] Psychologic: Patient is tearful Current Patient Data Vital Signs Vital Signs Date Time Temp Pulse Resp B/P (MAP) Pulse Ox O2 Delivery O2 Flow Rate FiO2 04/19/17 23:36 18 98 Room Air 04/19/17 22:47 98.1 110 98.1 EKG EKG [] Radiology/Procedures Radiology/Procedures [] Course & Med Decision Making Course & Med Decision Making Pertinent Labs and Imaging studies reviewed. (See chart for details) []1. Pain control The patient was given one 10 mg Percocet in the emergency department. It was explained that we do not refill pain medications in the ED. She will need to call her pain management group in the morning when they open. She responded that her pain management group would simply tell her to go to the ED if she is in pain. I strongly encouraged her to have a conversation with her primary care provider and potentially find a new pain management group. I reiterated that we will not refill her pain medication in the emergency department. The patient was very tearful explained that the pain doctor would only give her Lyrica and refused to give her oxycodone. I again encouraged her to have those conversations with the specialist that she is being treated by. [place] Disclaimer [place] Disclaimer This electronic medical record was generated, in whole or in part, using a voice recognition dictation system. Departure Departure Impression: Primary Impression: Chronic back pain Disposition: 01 HOME, SELF-CARE Condition: STABLE Referrals: PALMA CARDOZA PA-C (PCP) Patient Instructions: Chronic Back Pain Additional Instructions: Please call your pain management doctor first thing in the morning for a refill of your narcotic pain medication. Don't drive or operate heavy machinery while taking narcotics. MARIA ISABEL BALTAZAR APRN Apr 19, 2017 23:59
== END 2017-04-19 23:38 | disposition home or self-care (01) ==
LOC: ER 22:26
DX: G89.29 Other chronic pain (principal); M54.5 Low back pain; K21.9 Gastro-esophageal reflux disease without esophagitis; Z87.442 Personal history of urinary calculi; Z98.51 Tubal ligation status; Z90.49 Acquired absence of other specified parts of digestive tract; F17.200 Nicotine dependence, unspecified, uncomplicated
CPT/HCPCS: 99282

== ENCOUNTER → 2017-04-22 | Outpatient (CLI) | payer OTHER ==
[2017-04-19 22:47] VITALS: BP 141/88
--- NOTE | 2017-04-22 16:15 | KCIC ---
SACROILIAC JOINTS 3V History: SI joint dysfunction, pain greater on the left Comparison: Lumbar radiographs 09/03/2015. Findings: 4 views of the sacroiliac joints are submitted. Sacroiliac joints are symmetric in appearance and patent, no significant change in appearance comparing with the previous exam. Sacral arcuate lines are preserved. No acute osseous abnormality is identified by radiographs. Impression: 1. Sacroiliac joints are patent bilaterally. Electronically signed by: Enzo Dominguez MD (04/22/2017 4:12 PM) [id number]
== END | disposition home or self-care (01) ==
LOC: KCIC 11:31
PROVIDERS: ATTEND Family Medicine
DX: M53.3 Sacrococcygeal disorders, not elsewhere classified (principal)
CPT/HCPCS: 72202

== ENCOUNTER → 2017-05-05 | Outpatient (CLI) | payer OTHER | END | disposition home or self-care (01) | LOC: RT 18:39 | DX: R40.0 Somnolence (principal); R06.83 Snoring; R06.81 Apnea, not elsewhere classified | CPT/HCPCS: 95810 ==

== ENCOUNTER 2017-05-17 00:24 | Emergency (ER) | payer OTHER ==
[2017-05-17] MEDS: HYDROmorphone 2 MG/ML VIAL IM (01:03)
[2017-05-17] MEDS: PROMETHAZINE IM 25 MG/ML VIAL IM (01:04)
[2017-05-17] MEDS: ORPHENADRINE CITRATE 60 MG/2 ML VIAL. IM (01:06)
== END 2017-05-17 01:44 | disposition home or self-care (01) ==
LOC: ER 00:24
DX: S46.912A Strain of unspecified muscle, fascia and tendon at shoulder and upper arm level, left arm, initial encounter (principal); R07.89 Other chest pain; F17.210 Nicotine dependence, cigarettes, uncomplicated; K21.9 Gastro-esophageal reflux disease without esophagitis; M19.90 Unspecified osteoarthritis, unspecified site; G89.29 Other chronic pain; Z90.49 Acquired absence of other specified parts of digestive tract; Z96.0 Presence of urogenital implants; Z87.442 Personal history of urinary calculi; W22.8XXA Striking against or struck by other objects, initial encounter; Y93.89 Activity, other specified; Y92.89 Other specified places as the place of occurrence of the external cause; Y99.8 Other external cause status
CPT/HCPCS: 93005; 96372; 99284-25; J1170; J2360; J2550

== ENCOUNTER 2017-05-28 13:25 | Emergency (ER) | payer OTHER ==
[2017-05-28 14:29] LABS: URINE HCG POC HCG NEGATIVE (Negative)
[2017-05-28 14:44] LABS: BILIRUBIN,URINE NEGATIVE (NEG); CLARITY,URINE CLOUDY; COLOR,URINE YELLOW; GLUCOSE,URINE NEGATIVE (NEG); NITRITE,URINE NEGATIVE (NEG); PROTEIN,URINE NEGATIVE (NEG-TRACE); UROBILINOGEN,URINE 0.2 mg/dL (0.2 mg/dL)
[2017-05-28 15:04] LABS: BACTERIA,URINE MODERATE /HPF (0-FEW); RBC,URINE 0 /HPF (0-2); SQUAMOUS EPITHELIAL CELL,UR MANY /LPF; WBC,URINE 0 /HPF (0-4)
[2017-05-28] MEDS: KETOROLAC 60 MG/2 ML INJ. IM (15:49)
== END 2017-05-28 16:10 | disposition home or self-care (01) ==
LOC: ER 13:25
DX: N20.0 Calculus of kidney (principal); K21.9 Gastro-esophageal reflux disease without esophagitis; G89.29 Other chronic pain; M19.90 Unspecified osteoarthritis, unspecified site; Z98.51 Tubal ligation status; Z90.49 Acquired absence of other specified parts of digestive tract
CPT/HCPCS: 74150; 81001; 81025; 87086; 96372; 99285-25; J1885

== ENCOUNTER 2017-06-05 23:18 | Emergency (ER) | payer OTHER ==
[2017-06-05 23:48] LABS: URINE HCG POC HCG NEGATIVE (Negative)
[2017-06-05 23:48] LABS: ADD MAN DIFF? NO
[2017-06-05 23:51] LABS: BASO # 0.1 x10^3/uL (0.0-0.2); BASO % 1 % (0-3); BILIRUBIN,URINE NEGATIVE (NEG); CLARITY,URINE CLEAR; COLOR,URINE YELLOW; EOS # 0.2 x10^3/uL (0.0-0.7); EOS % 2 % (0-3); GLUCOSE,URINE NEGATIVE (NEG); HEMATOCRIT 44.7 % (36.0-47.0); LYMPH # 4.5 x10^3/uL (1.0-4.8); LYMPH % 39 % (24-48); MEAN CORPUSCULAR HEMOGLOBIN 30 pg (25-35); MEAN CORPUSCULAR HGB CONC 34 g/dL (31-37); MEAN CORPUSCULAR VOLUME 90 fL (79-100); MONO # 0.8 x10^3/uL (0.0-1.1); MONO % 7 % (0-9); NEUT # 5.8 x10^3uL (1.8-7.7); NEUT % 51 % (31-73); NITRITE,URINE NEGATIVE (NEG); PH,URINE 6.5; PLATELET COUNT 269 x10^3/uL (140-400); PROTEIN,URINE NEGATIVE (NEG-TRACE); RED BLOOD COUNT 4.98 x10^6/uL (3.50-5.40); RED CELL DISTRIBUTION WIDTH 15.2 % (11.5-14.5); WHITE BLOOD COUNT 11.4 x10^3/uL (4.0-11.0)
[2017-06-06] LABS: ANION GAP 5 (6-14); BACTERIA,URINE MODERATE /HPF (0-FEW); BLOOD UREA NITROGEN 17 mg/dL (7-20); BUN/CREATININE RATIO 21 (6-20); CALCIUM 9.2 mg/dL (8.5-10.1); CARBON DIOXIDE 30 mmol/L (21-32); CHLORIDE 98 mmol/L (98-107); CREATININE 0.8 mg/dL (0.6-1.0); GFR 80.7; GLUCOSE 115 mg/dL (70-99); RBC,URINE OCC /HPF (0-2); SODIUM 133 mmol/L (136-145); SQUAMOUS EPITHELIAL CELL,UR MANY /LPF
[2017-06-06 00:06] LABS: ALBUMIN 3.6 g/dL (3.4-5.0); ALBUMIN/GLOBULIN RATIO 0.7 (1.0-1.7); ALK PHOS 68 U/L (46-116); ALT (SGPT) 45 U/L (14-59); AST (SGOT) 33 U/L (15-37); TOTAL BILIRUBIN 0.3 mg/dL (0.2-1.0); TOTAL PROTEIN 8.6 g/dL (6.4-8.2)
[2017-06-06] MEDS: ONDANSETRON PF 4 MG/2 ML VIAL. IV ×2 (00:13)
[2017-06-06] MEDS: fentaNYL PF VIAL 100 MCG/2 ML VIAL IV ×2 (00:13)
[2017-06-06] MEDS: IV NORMAL SALINE 1000ML BAG 1,000 ML IV ×2 (00:13)
[2017-06-06] MEDS ORDERED: fentaNYL PF VIAL 100 MCG/2 ML VIAL IV ×2 (01:30)
[2017-06-06] MEDS ORDERED: ONDANSETRON PF 4 MG/2 ML VIAL. IV ×2 (01:30)
[2017-06-06] MEDS ORDERED: IV NORMAL SALINE 1000ML BAG 1,000 ML IV ×2 (01:30)
== END 2017-06-06 01:49 | disposition left against medical advice (07) ==
LOC: ER 23:18 → 4 NORTH 06-06 01:17
DX: N20.0 Calculus of kidney (principal); K21.9 Gastro-esophageal reflux disease without esophagitis; Z90.49 Acquired absence of other specified parts of digestive tract; Z98.51 Tubal ligation status
CPT/HCPCS: 36415; 74176; 80053; 81001; 81025; 85025; 87086; 96361; 96374; 96375; 99285-25; J2405; J3010; J7030

== ENCOUNTER → 2017-06-09 | Outpatient (CLI) | payer OTHER | END | disposition home or self-care (01) | LOC: RAD 08:30 | DX: N20.0 Calculus of kidney (principal); Z90.49 Acquired absence of other specified parts of digestive tract | CPT/HCPCS: 74018 ==

== ENCOUNTER → 2017-07-25 | Outpatient (CLI) | payer OTHER | END | disposition home or self-care (01) | LOC: RAD 10:02 | DX: Z87.442 Personal history of urinary calculi (principal); Z90.49 Acquired absence of other specified parts of digestive tract | CPT/HCPCS: 74018 ==

== ENCOUNTER 2017-08-24 23:08 | Emergency (ER) | payer OTHER ==
[2017-08-24 23:59] LABS: URINE HCG POC HCG NEGATIVE (Negative)
[2017-08-25 00:21] LABS: ADD MAN DIFF? NO
[2017-08-25 00:23] LABS: BASO # 0.2 x10^3/uL (0.0-0.2); BASO % 1 % (0-3); EOS # 0.2 x10^3/uL (0.0-0.7); EOS % 2 % (0-3); HEMATOCRIT 45.5 % (36.0-47.0); HEMOGLOBIN 15.5 g/dL (12.0-15.5); LYMPH # 4.2 x10^3/uL (1.0-4.8); LYMPH % 33 % (24-48); MEAN CORPUSCULAR HEMOGLOBIN 31 pg (25-35); MEAN CORPUSCULAR HGB CONC 34 g/dL (31-37); MEAN CORPUSCULAR VOLUME 90 fL (79-100); MONO # 0.7 x10^3/uL (0.0-1.1); MONO % 5 % (0-9); NEUT # 7.4 x10^3uL (1.8-7.7); NEUT % 58 % (31-73); PLATELET COUNT 288 x10^3/uL (140-400); RED BLOOD COUNT 5.05 x10^6/uL (3.50-5.40); RED CELL DISTRIBUTION WIDTH 14.6 % (11.5-14.5); WHITE BLOOD COUNT 12.8 x10^3/uL (4.0-11.0)
[2017-08-25] MEDS: IV NORMAL SALINE 1000ML BAG 1,000 ML IV (00:23)
[2017-08-25] MEDS: KETOROLAC 30 MG/ML INJ. IV (00:27)
[2017-08-25 00:30] LABS: BILIRUBIN,URINE NEGATIVE (NEG); CLARITY,URINE CLEAR; COLOR,URINE YELLOW; GLUCOSE,URINE NEGATIVE (NEG); NITRITE,URINE NEGATIVE (NEG); PROTEIN,URINE NEGATIVE (NEG-TRACE); UROBILINOGEN,URINE 0.2 mg/dL (0.2 mg/dL)
[2017-08-25 00:35] LABS: ANION GAP 12 (6-14); BLOOD UREA NITROGEN 10 mg/dL (7-20); CARBON DIOXIDE 25 mmol/L (21-32); CHLORIDE 101 mmol/L (98-107); CREATININE 0.6 mg/dL (0.6-1.0); GFR 112.5; GLUCOSE 186 mg/dL (70-99); POTASSIUM 4.6 mmol/L (3.5-5.1); SODIUM 138 mmol/L (136-145)
[2017-08-25 00:36] LABS: BACTERIA,URINE MOD /HPF (0-FEW); LIPASE 211 U/L (73-393); RBC,URINE OCC /HPF (0-2); SQUAMOUS EPITHELIAL CELL,UR FEW /LPF; WBC,URINE OCC /HPF (0-4)
[2017-08-25] MEDS: HYDROcodone/APAP 10/325 1 TAB TABLET PO (02:14)
[2017-08-25] MEDS ORDERED: ORPHENADRINE CITRATE 60 MG/2 ML VIAL. (02:46)
[2017-08-25] MEDS: ORPHENADRINE CITRATE 60 MG/2 ML VIAL. IM (02:49)
== END 2017-08-25 02:58 | disposition home or self-care (01) ==
LOC: ER 23:08
DX: R10.9 Unspecified abdominal pain (principal); M54.5 Low back pain; K21.9 Gastro-esophageal reflux disease without esophagitis; M19.90 Unspecified osteoarthritis, unspecified site; Z87.442 Personal history of urinary calculi; Z90.49 Acquired absence of other specified parts of digestive tract; Z98.51 Tubal ligation status
CPT/HCPCS: 36415; 80048; 81001; 81025; 83690; 85025; 96361; 96372; 96374; 96375; 96376; 99284-25; J1885; J2060; J2360; J7030

== ENCOUNTER 2018-01-06 13:30 | Emergency (ER) | payer OTHER ==
[~2018-01-06] VITALS: Ht 157.5 cm; Wt 127.0 kg
[~2018-01-06 13:30] MED LIST changes: +IBUP-1060 PO; +TAMS0.4C97 PO
[2018-01-06 13:40] VITALS: BP 145/90
[2018-01-06] MEDS ORDERED: KETOROLAC 60 MG/2 ML INJ. IM ONE (14:15)
[2018-01-06] MEDS ORDERED: diazePAM 5 MG TABLET PO ONE (14:15)
[2018-01-06] MEDS ORDERED: MORPHINE SULFATE 10 MG/ML VIAL. SQ ONE (14:15)
[2018-01-06] MEDS ORDERED: DEXAMETHASONE SOD PHOS 20 MG/5 ML VIAL. IM ONE (14:15)
--- NOTE | 2018-01-06 14:32 | PHYS DOC ---
Past Medical History Past Medical History: Bronchitis, GERD, Kidney Stone, Sciatica, Sinusitis Additional Past Medical Histor: bulging discs, OSTEOARTHRITIS, STENOSIS Past Surgical History: Cholecystectomy, Tubal ligation, Other Additional Past Surgical Histo: renal stent, sinus surgery Alcohol Use: Rarely Drug Use: None Adult General Chief Complaint Chief Complaint: BACK PAIN OR INJURY HPI HPI Patient is a 37 year old female with history of sciatica, chronic back pain, kidney stones, acid reflex, who presents today complaining of a sharp 7 out of 10 left low back pain radiating to her left lower extremity that began this morning. Patient states she was walking down some steps when her left hip locked up and she grab on the railing to prevent falling. She states since then she's had pain to the left low back, pain radiating through the left hip into the left lower extremity. Patient denies any loss of bowel bladder function. She states she has chronic back pain. Review of Systems Review of Systems Constitutional: Denies fever or chills [] Eyes: Denies change in visual acuity, redness, or eye pain [] HENT: Denies nasal congestion or sore throat [] Respiratory: Denies cough or shortness of breath [] Cardiovascular: No additional information not addressed in HPI [] GI: Denies abdominal pain, nausea, vomiting, bloody stools or diarrhea [] : Denies dysuria or hematuria [] Musculoskeletal: Reports left low back pain radiating to the left hip into the left lower extremity Integument: Denies rash or skin lesions [] Neurologic: Denies headache, focal weakness or sensory changes [] All other systems were reviewed and found to be within normal limits, except as documented in this note. Current Medications Current Medications Current Medications Medications (Trade) Dose Ordered Sig/[facility] Start Time Stop Time Status Last Admin Dose Admin Dexamethasone Sodium Phosphate (Decadron) 10 mg 1X ONCE 01/06/18 14:15 01/06/18 14:19 DC 01/06/18 14:30 10 MG Diazepam (Valium) 5 mg 1X ONCE 01/06/18 14:15 01/06/18 14:19 DC 01/06/18 14:29 5 MG Ketorolac Tromethamine (Toradol Im) 60 mg 1X ONCE 01/06/18 14:15 01/06/18 14:19 DC 01/06/18 14:30 60 MG Morphine Sulfate (Morphine Sulfate) 10 mg 1X ONCE 01/06/18 14:15 01/06/18 14:19 DC 01/06/18 14:30 10 MG Allergies Allergies Allergies Coded Allergies Type Severity Reaction Last Updated Verified No Known Drug Allergies 01/16/15 No Physical Exam Physical Exam Constitutional: Obese patient. Well developed, well nourished, no acute distress , non-toxic appearance. [] HENT: Normocephalic, atraumatic, bilateral external ears normal, oropharynx moist, no oral exudates, nose normal. [] Eyes: PERRLA, EOMI, conjunctiva normal, no discharge. [] Neck: Normal range of motion, no tenderness, supple, no stridor. [] Cardiovascular:Heart rate regular rhythm, no murmur [] Lungs & Thorax: Bilateral breath sounds clear to auscultation [] Abdomen: Bowel sounds normal, soft, no tenderness, no masses, no pulsatile masses. [] Skin: Warm, dry, no erythema, no rash. [] Back: Tenderness on palpation of the left lumbar spine especially left SI joint , no midline lumbar spine tenderness, no CVA tenderness. [] Extremities: No tenderness, no cyanosis, no clubbing, ROM intact, no edema. [] Neurologic: Alert and oriented X 3, normal motor function, normal sensory function, no focal deficits noted. [] Psychologic: Affect normal, judgement normal, mood normal. [] Current Patient Data Vital Signs Vital Signs Date Time Temp Pulse Resp B/P (MAP) Pulse Ox O2 Delivery O2 Flow Rate FiO2 01/06/18 14:30 16 Room Air 01/06/18 13:40 98.5 83 145/90 (108) 99 98.5 EKG EKG [] Radiology/Procedures Radiology/Procedures [] Course & Med Decision Making Course & Med Decision Making Pertinent Labs and Imaging studies reviewed. (See chart for details) This is a 37-year-old female patient with history of chronic back pain presenting today with complaints of back pain after what sounds to be a muscle strain. She was given IM injections of Decadron, Toradol, subcutaneous injection of morphine and Valium by mouth. Kracs shows she received 105 tablets of oxycodone on 12/13/2017 from her PCP. Gave her prescription for cyclobenzaprine and Medrol Dosepak. Follow-up with her own PCP in the course of this week. She has no cauda equina syndrome symptoms. Staff Physician Addendum: I was working in the ER during the course of this patient's visit. I was available for consultation as needed, but I was not directly involved in the care of this patient. Dragon Disclaimer Dragon Disclaimer This electronic medical record was generated, in whole or in part, using a voice recognition dictation system. Departure Departure Impression: Primary Impression: Lumbosacral strain Additional Impressions: Chronic back pain Sciatica of left side Disposition: HOME, SELF-CARE Condition: STABLE Referrals: DAVID FUNES MD (PCP) Follow-up in 1-2 weeks Patient Instructions: Back Pain, Adult, [id number], Lumbosacral Strain Additional Instructions: You were evaluated in the emergency room for back pain, you likely strained your back/hip. Continue taking your pain medicines at home. Use the prescribed medications as ordered. Follow-up with your doctor next week. Scripts Methylprednisolone (MEDROL) 4 Mg Tab.ds.pk 1 PKG PO UD, #1 PKG Prov: ZOILA GUZMÁN APRN 01/06/18 Cyclobenzaprine Hcl (CYCLOBENZAPRINE HCL) 10 Mg Tablet 1 TAB PO TID, #30 TAB Prov: ZOILA GUZMÁN APRN 01/06/18 Problem Qualifiers Primary Impression: Lumbosacral strain Encounter type: initial encounter Qualified Codes: S39.012A - Strain of muscle, fascia and tendon of lower back, initial encounter Additional Impressions: Chronic back pain Back pain location: low back pain Back pain laterality: left Sciatica presence: without sciatica Qualified Codes: M54.5 - Low back pain; G89.29 - Other chronic pain ZOILA GUZMÁN APRN Jan 06, 2018 14:32 TAMAR RIVERA MD Jan 07, 2018 18:37
[2018-01-06] MEDS ORDERED: CYCL10TA2 PO (14:39)
[2018-01-06] MEDS ORDERED: METH4TAB2 PO (14:39)
== END 2018-01-06 14:55 | disposition home or self-care (01) ==
LOC: ER 13:30
DX: S39.012A Strain of muscle, fascia and tendon of lower back, initial encounter (principal); G89.29 Other chronic pain; M54.32 Sciatica, left side; K21.9 Gastro-esophageal reflux disease without esophagitis; Z90.49 Acquired absence of other specified parts of digestive tract; X58.XXXA Exposure to other specified factors, initial encounter; Y93.89 Activity, other specified; Y92.89 Other specified places as the place of occurrence of the external cause; Y99.8 Other external cause status
CPT/HCPCS: 96372; 99284; J1100; J1885; J2270

== ENCOUNTER 2018-02-16 21:42 | Emergency (ER) | payer OTHER ==
[~2018-02-16] VITALS: Ht 157.5 cm; Wt 128.4 kg
[~2018-02-16 21:42] MED LIST changes: +CYCL10TA2 PO; +METH4TAB2 PO
[2018-02-16 21:55] VITALS: BP 150/92
--- NOTE | 2018-02-16 22:17 | PHYS DOC ---
Past Medical History Past Medical History: Bronchitis, GERD, Kidney Stone, Sciatica, Sinusitis Additional Past Medical Histor: bulging discs, OSTEOARTHRITIS, STENOSIS Past Surgical History: Cholecystectomy, Tubal ligation, Other Additional Past Surgical Histo: renal stent, sinus surgery Alcohol Use: Rarely Drug Use: None Adult General Chief Complaint Chief Complaint: BACK PAIN - NO INJURY HPI HPI Patient is a 37 year old female with history of sciatica, chronic low back pain , who presents today with exacerbation of her chronic low back pain radiating to bilateral lower extremities. Patient states the pain got worse this evening. She rates the pain as 10/10, describes the pain as sharp and constant. She states the pain is worse on movement. Patient denies any trauma. Denies any loss of bowel bladder function, she states she has tried tizanidine and oxycodone with no relief. Review of Systems Review of Systems Constitutional: Denies fever or chills [] GI: Denies abdominal pain, nausea, vomiting, bloody stools or diarrhea [] : Denies dysuria or hematuria [] Musculoskeletal: Reports bilateral low back pain radiating to bilateral lower extremities Integument: Denies rash or skin lesions [] Neurologic: Denies headache, focal weakness or sensory changes [] All other systems were reviewed and found to be within normal limits, except as documented in this note. Current Medications Current Medications Current Medications Medications (Trade) Dose Ordered Sig/[facility] Start Time Stop Time Status Last Admin Dose Admin Diazepam (Valium) 5 mg 1X ONCE 02/16/18 22:30 02/16/18 22:31 DC 02/16/18 22:24 5 MG Ketorolac Tromethamine (Toradol Im) 60 mg 1X ONCE 02/16/18 22:30 02/16/18 22:31 DC 02/16/18 22:24 60 MG Methylprednisolone Sodium Succinate (SOLU-Medrol 125MG VIAL) 125 mg 1X ONCE 02/16/18 22:30 02/16/18 22:31 DC 02/16/18 22:23 125 MG Morphine Sulfate (Morphine Sulfate) 5 mg 1X ONCE 02/16/18 22:30 02/16/18 22:31 DC 02/16/18 22:24 5 MG Allergies Allergies Allergies Coded Allergies Type Severity Reaction Last Updated Verified No Known Drug Allergies 01/16/15 No Physical Exam Physical Exam Constitutional: Well developed, well nourished, no acute distress, non-toxic appearance. [] Skin: Warm, dry, no erythema, no rash. [] Back: Obese patient, diffuse paraspinal muscle tenderness bilateral lumbar spine , no midline lumbar spine tenderness, no CVA tenderness. [] Extremities: No tenderness, no cyanosis, no clubbing, ROM intact, no edema. [] Neurologic: Alert and oriented X 3, normal motor function, normal sensory function, no focal deficits noted. [] Psychologic: Affect normal, judgement normal, mood normal. [] Current Patient Data Vital Signs Vital Signs Date Time Temp Pulse Resp B/P (MAP) Pulse Ox O2 Delivery O2 Flow Rate FiO2 02/16/18 22:24 26 98 Room Air 02/16/18 21:55 98.7 101 150/92 (111) 98.7 EKG EKG [] Radiology/Procedures Radiology/Procedures [] Course & Med Decision Making Course & Med Decision Making Pertinent Labs and Imaging studies reviewed. (See chart for details) This is a 37-year-old female patient presenting to the ED today with bilateral low back pain radiating to bilateral lower extremities, no known injury. Patient has oxycodone at home. Will be given morphine, Toradol, Valium and Solu- Medrol in the ED discharge. She has no cauda equina syndrome. She has a PCP and good follow-up. She was provided return precautions and discharged. Dragon Disclaimer Dragon Disclaimer This electronic medical record was generated, in whole or in part, using a voice recognition dictation system. Departure Departure Impression: Primary Impression: Chronic back pain Disposition: HOME, SELF-CARE Condition: STABLE Referrals: DAVID FUNES MD (PCP) follow up in one week Patient Instructions: Back Pain, Adult Additional Instructions: You were evaluated in the emergency room for exacerbation of chronic low back pain with sciatica. Take your medications at home as prescribed by your doctor. Follow-up with your own doctor as soon as possible. Come back to the ED at any point symptoms worsen. Attending Co-Sign Attending Co-Sign The patient was not seen by me. The [facility] chart was reviewed. I agree with the plan of care. Problem Qualifiers Primary Impression: Chronic back pain Back pain location: low back pain Back pain laterality: bilateral Sciatica presence: with sciatica Sciatica laterality: bilateral sciatica Qualified Codes: M54.42 - Lumbago with sciatica, left side; M54.41 - Lumbago with sciatica, right side; G89.29 - Other chronic pain ZOILA GUZMÁN APRN Feb 16, 2018 22:17 DESIRAE MUSTAFA MD Feb 19, 2018 04:36
[2018-02-16] MEDS ORDERED: KETOROLAC 60 MG/2 ML INJ. IM ONE (22:30)
[2018-02-16] MEDS ORDERED: methylPREDNISolone SOD SUCC PF 125 MG/2 ML VIAL. IM ONE (22:30)
[2018-02-16] MEDS ORDERED: MORPHINE SULFATE 10 MG/ML VIAL. IM ONE (22:30)
[2018-02-16] MEDS ORDERED: diazePAM 5 MG TABLET PO ONE (22:30)
== END 2018-02-16 22:36 | disposition home or self-care (01) ==
LOC: ER 21:42
DX: G89.29 Other chronic pain (principal); M54.41 Lumbago with sciatica, right side; M54.42 Lumbago with sciatica, left side; M79.604 Pain in right leg; M79.605 Pain in left leg; K21.9 Gastro-esophageal reflux disease without esophagitis; Z87.442 Personal history of urinary calculi; Z98.51 Tubal ligation status; Z90.49 Acquired absence of other specified parts of digestive tract
CPT/HCPCS: 96372; 99284; J1885; J2270; J2930

== ENCOUNTER → 2018-03-14 | Outpatient (CLI) | payer OTHER ==
[2018-02-16 21:55] VITALS: BP 150/92
--- NOTE | 2018-03-14 12:51 | KCIC ---
Single view pelvis, two-view left hip and three-view left knee dated 03/14/2018. No comparison available. CLINICAL INDICATION: Pain. FINDINGS: Single AP view pelvis shows normal bony alignment. No displaced fracture. Pelvic ring is intact. No acute osseous or articular abnormality. 2 views left hip show normal bony alignment. No displaced fracture. No acute osseous or articular abnormality. 3 views of the left knee show normal bony alignment. No displaced fracture. No apparent joint effusion or loose body. No periostitis or bone destruction. IMPRESSION: No acute radiographic abnormality. Electronically signed by: Renzo Matthews MD (03/14/2018 12:48 PM) [facility]
--- NOTE | 2018-03-14 12:51 | KCIC ---
Single view pelvis, two-view left hip and three-view left knee dated 03/14/2018. No comparison available. CLINICAL INDICATION: Pain. FINDINGS: Single AP view pelvis shows normal bony alignment. No displaced fracture. Pelvic ring is intact. No acute osseous or articular abnormality. 2 views left hip show normal bony alignment. No displaced fracture. No acute osseous or articular abnormality. 3 views of the left knee show normal bony alignment. No displaced fracture. No apparent joint effusion or loose body. No periostitis or bone destruction. IMPRESSION: No acute radiographic abnormality. Electronically signed by: Renzo Matthews MD (03/14/2018 12:48 PM) [facility]
== END | disposition home or self-care (01) ==
LOC: KCIC 11:10
PROVIDERS: ATTEND Physician Assistant Medical
DX: S89.92XA Unspecified injury of left lower leg, initial encounter (principal); M25.352 Other instability, left hip; F17.200 Nicotine dependence, unspecified, uncomplicated; X58.XXXA Exposure to other specified factors, initial encounter; Y93.89 Activity, other specified; Y92.89 Other specified places as the place of occurrence of the external cause; Y99.8 Other external cause status
CPT/HCPCS: 73502; 73562

== ENCOUNTER 2018-03-31 13:19 | Emergency (ER) | payer OTHER ==
[~2018-03-31] VITALS: Ht 157.5 cm; Wt 128.4 kg
[~2018-03-31 13:19] MED LIST changes: +HYDR-3164 PO; -HYDR-971 PO
[2018-03-31 13:29] VITALS: BP 133/65
[2018-03-31] MEDS ORDERED: MORPHINE SULFATE 10 MG/ML VIAL. SQ ONE (13:45)
--- NOTE | 2018-03-31 14:24 | PHYS DOC ---
Past Medical History Past Medical History: Bronchitis, GERD, Kidney Stone, Sciatica, Sinusitis Additional Past Medical Histor: bulging discs, OSTEOARTHRITIS, STENOSIS Past Surgical History: Cholecystectomy, Tubal ligation, Other Additional Past Surgical Histo: renal stent, sinus surgery Alcohol Use: Occasionally Drug Use: None Adult General Chief Complaint Chief Complaint: BACK PAIN - NO INJURY [facility] HPI Patient is a 38 year old female who presents with an exacerbation of her chronic back pain. The patient states that she has tried all of her at-home therapies with no relief. She states that she has had come in before and have rescue shots to help control her back pain. She's been trying to get into [facility] to be seen but states that she needs some kind of an intervention today. She denies spontaneous loss of bowel or bladder, saddle numbness or foot drop. Review of Systems Review of Systems Constitutional: Denies fever or chills [] Respiratory: Denies cough or shortness of breath [] Cardiovascular: No additional information not addressed in HPI [] GI: Denies abdominal pain, nausea, vomiting, bloody stools or diarrhea [] : Denies dysuria or hematuria [] Musculoskeletal: See history of present illness Integument: Denies rash or skin lesions [] Neurologic: Denies headache, focal weakness or sensory changes [] Endocrine: Denies polyuria or polydipsia [] All other systems were reviewed and found to be within normal limits, except as documented in this note. Current Medications Current Medications Current Medications Medications (Trade) Dose Ordered Sig/[facility] Start Time Stop Time Status Last Admin Dose Admin Morphine Sulfate (Morphine Sulfate) 10 mg 1X ONCE 03/31/18 13:45 03/31/18 13:46 DC 03/31/18 13:56 10 MG Ondansetron HCl (Zofran Odt) 4 mg 1X ONCE 03/31/18 15:00 03/31/18 15:00 DC Allergies Allergies Allergies Coded Allergies Type Severity Reaction Last Updated Verified No Known Drug Allergies 01/16/15 No Physical Exam Physical Exam Constitutional: Well developed, well nourished, no acute distress, non-toxic appearance. [] Neck: Normal range of motion, no tenderness, supple, no stridor. [] Cardiovascular:Heart rate regular rhythm, no murmur [] Lungs & Thorax: Bilateral breath sounds clear to auscultation [] Abdomen: Bowel sounds normal, soft, no tenderness, no masses, no pulsatile masses. [] Skin: Warm, dry, no erythema, no rash. [] Back: No point spinal tenderness, lumbar tenderness with palpation, no step- offs noted, no CVA tenderness. [] Extremities: No tenderness, no cyanosis, no clubbing, ROM intact, no edema. [] Neurologic: Alert and oriented X 3, normal motor function, normal sensory function, no focal deficits noted. [] Psychologic: Affect normal, judgement normal, mood normal. [] Current Patient Data Vital Signs Vital Signs Date Time Temp Pulse Resp B/P (MAP) Pulse Ox O2 Delivery O2 Flow Rate FiO2 03/31/18 13:29 97.7 80 20 133/65 (87) 100 Room Air 97.7 EKG EKG [] Radiology/Procedures Radiology/Procedures [] Course & Med Decision Making Course & Med Decision Making Pertinent Labs and Imaging studies reviewed. (See chart for details) []The patient was given subcutaneous morphine in the emergency department. She was also given Zofran for nausea. Dragon Disclaimer Dragon Disclaimer This electronic medical record was generated, in whole or in part, using a voice recognition dictation system. Departure Departure Impression: Primary Impression: Chronic back pain Disposition: 01 HOME, SELF-CARE Condition: STABLE Referrals: DAVID FUNES MD (PCP) Patient Instructions: Back Pain, Adult Additional Instructions: Do not drive or operate heavy machinery 12 hours. Take your at home pain medication as scheduled. Follow-up with your specialist's appointments as scheduled. If worsening return to the emergency department. MARIA ISABEL BALTAZAR APRN Mar 31, 2018 14:24
[2018-03-31] MEDS ORDERED: ONDANSETRON ODT 4 MG TAB.RAPDIS. PO ONE ×2 (14:45→15:00)
== END 2018-03-31 14:31 | disposition home or self-care (01) ==
LOC: ER 13:19
DX: G89.29 Other chronic pain (principal); M54.5 Low back pain; K21.9 Gastro-esophageal reflux disease without esophagitis; Z87.442 Personal history of urinary calculi; Z90.49 Acquired absence of other specified parts of digestive tract; Z98.51 Tubal ligation status
CPT/HCPCS: 96372; 99283; J2270; Q0162

== ENCOUNTER 2018-06-04 12:44 | Emergency (ER) | payer MEDICAID, OTHER ==
[~2018-06-04] VITALS: Ht 147.3 cm; Wt 123.4 kg
[~2018-06-04 12:44] MED LIST changes: +ALBU2.5V8 INH; -GABA-586 PO; +GABA300C18 PO; -HYDR-2758 PO; +HYDR-2761 PO; -HYDR-2762 PO; +HYDR-2765 PO; -PROAIR HFA8.5 GM INH
[2018-06-04 13:34] VITALS: BP 133/65
--- NOTE | 2018-06-04 13:36 | PHYS DOC ---
Past Medical History Past Medical History: Bronchitis, GERD, Kidney Stone, Sciatica, Sinusitis Additional Past Medical Histor: bulging discs, OSTEOARTHRITIS, STENOSIS Past Surgical History: Cholecystectomy, Tubal ligation, Other Additional Past Surgical Histo: renal stent, sinus surgery Alcohol Use: Occasionally Drug Use: None Adult General Chief Complaint Chief Complaint: Congestion HPI HPI Patient is a 38 year old female who presents with cough, fever, body aches for the last 3 days. Patient states she didn't really get worse until last night though. Patient states she's been taking [id number] cold medications ibuprofen. Patient rates her pain an 8 out of 10 especially in her chest, ribs and her upper back. Review of Systems Review of Systems Constitutional: Denies fever or chills [] Eyes: Denies change in visual acuity, redness, or eye pain [] HENT: Denies nasal congestion or sore throat [] Respiratory: Denies cough or shortness of breath [] Cardiovascular: No additional information not addressed in HPI [] GI: Denies abdominal pain, nausea, vomiting, bloody stools or diarrhea [] : Denies dysuria or hematuria [] Musculoskeletal: Denies back pain or joint pain [] Integument: Denies rash or skin lesions [] Neurologic: Denies headache, focal weakness or sensory changes [] Endocrine: Denies polyuria or polydipsia [] All other systems were reviewed and found to be within normal limits, except as documented in this note. Current Medications Current Medications Current Medications Medications (Trade) Dose Ordered Sig/[facility] Start Time Stop Time Status Last Admin Dose Admin Prednisone (Prednisone) 50 mg 1X ONCE 06/04/18 14:00 06/04/18 14:01 DC 06/04/18 13:56 50 MG Allergies Allergies Allergies Coded Allergies Type Severity Reaction Last Updated Verified No Known Drug Allergies 01/16/15 No Physical Exam Physical Exam Constitutional: Well developed, well nourished, no acute distress, non-toxic appearance. [] HENT: Normocephalic, atraumatic, bilateral external ears normal, oropharynx moist, no oral exudates, nose normal. Throat red with swollen tonsils bilaterally.[] Eyes: PERRLA, EOMI, conjunctiva normal, no discharge. [] Neck: Normal range of motion, no tenderness, supple, no stridor. [] Cardiovascular:Heart rate regular rhythm, no murmur [] Lungs & Thorax: Bilateral breath sounds clear to lower bilateral breath sounds are diminished. [] Abdomen: Bowel sounds normal, soft, no tenderness, no masses, no pulsatile masses. [] Skin: Warm, dry, no erythema, no rash. [] Back: No tenderness, no CVA tenderness. [] Extremities: No tenderness, no cyanosis, no clubbing, ROM intact, no edema. [] Neurologic: Alert and oriented X 3, normal motor function, normal sensory function, no focal deficits noted. [] Psychologic: Affect normal, judgement normal, mood normal. [] Current Patient Data Vital Signs Vital Signs Date Time Temp Pulse Resp B/P (MAP) Pulse Ox O2 Delivery O2 Flow Rate FiO2 06/04/18 13:34 99.2 106 16 133/65 (87) 100 Room Air 99.2 Lab Values Laboratory Tests Test 06/04/18 13:37 Influenza Type A Antigen Positive (NEGATIVE) Influenza Type B Antigen Negative (NEGATIVE) EKG EKG [] Radiology/Procedures Radiology/Procedures Chest x-ray Impressions: [facility] [address] [place] [address] IMAGING REPORT Signed PATIENT: GINGER BEAN ACCOUNT: [id number] : 1980 LOCATION: ER AGE: 38 SEX: F EXAM STATUS: REG ER ORD. PHYSICIAN: PALMIRA FLANAGAN APRN REASON: cough PROCEDURE: CHEST PA & LATERAL CHEST PA LATERAL Clinical indications: PT STATES COLD AND CONGESTION, COUGHING WITH RIB PAIN. COMPARISON: April 05, 2016 Findings: No acute lung infiltrate or pleural effusion or pulmonary edema or lung mass or pneumothorax is seen. The heart size, pulmonary vasculature, mediastinum and both castillo are unremarkable. The osseous structures appear intact. Impression: No acute radiographic abnormality is seen. Electronically signed by: Isabel Eckert MD (06/04/2018 2:15 PM) [facility] DICTATED and SIGNED BY: ISABEL ECKERT MD DATE: 06/04/18 1414 Course & Med Decision Making Course & Med Decision Making Patient is a 38 year old female who presents with cough, fever, body aches for the last 3 days. Patient states she didn't really get worse until last night though. Patient states she's been taking sscv-[id number] cold medications ibuprofen. Patient rates her pain an 8 out of 10 especially in her chest, ribs and her upper back. Alert and oriented. Speaks in full clear sentences. She takes a deep breath it causes her to cough. Nonproductive. Lungs are clear in upper lobes and diminished in lower lobes. Patient denies any nausea, vomiting, diarrhea. Temp in the ED is 99.2. Patient states took ibuprofen this morning. Throat is reddened and bilateral tonsils are swollen there are no exudates. Ambulatory with a steady gait. Patient is a smoker. Patient is satting 100% on room air. Chest xray shows no acute findings. Patient is positive for flu a. She'll be given a Medrol Dosepak, cough medication and Tamiflu. She is follow-up with primary care next week. Dragon Disclaimer Dragon Disclaimer This electronic medical record was generated, in whole or in part, using a voice recognition dictation system. Departure Departure Impression: Primary Impression: Influenza A Disposition: 01 HOME, SELF-CARE Condition: STABLE Referrals: DAVID FUNES MD (PCP) Patient Instructions: Influenza A (H1N1) Additional Instructions: Follow up with your Doctor this coming week. Take medications as prescribed. Continue also taking ibuprofen or Tylenol for your pain and fever. Scripts Guaifenesin/Codeine Phosphate (CHERATUSSIN AC SYRUP) 118 Ml Liquid 5 ML PO PRN Q6HRS, #120 ML Prov: PALMIRA FLANAGAN [employer]MICAL MILLING PROCESSOR 06/04/18 Methylprednisolone (MEDROL) 4 Mg Tab.ds.pk 1 PKG PO UD, #1 PKG Prov: PALMIRA FLANAGAN [employer]MICAL M[employer]ING PROCESSOR 06/04/18 Oseltamivir Phosphate (TAMIFLU) 75 Mg Capsule 1 CAP PO BID, #10 CAP Prov: PALMIRA FLANAGAN CHEMICAL MILLING PROCESSOR 06/04/18 PALMIRA FLANAGAN CHEMICAL MILLING PROCESSOR Jun 04, 2018 13:36
[2018-06-04] MEDS ORDERED: predniSONE 10 MG TABLET PO ONE (14:00)
[2018-06-04 14:06] LABS: INFLUENZA A PATIENT POSITIVE (NEGATIVE); INFLUENZA B PATIENT NEGATIVE (NEGATIVE)
[2018-06-04] MEDS ORDERED: OSEL75CA PO (14:09)
[2018-06-04] MEDS ORDERED: GUAI118L20 PO (14:10)
[2018-06-04] MEDS ORDERED: METH4TAB2 PO (14:10)
--- NOTE | 2018-06-04 14:19 | RAD ---
CHEST PA LATERAL Clinical indications: PT STATES COLD AND CONGESTION, COUGHING WITH RIB PAIN. COMPARISON: April 05, 2016 Findings: No acute lung infiltrate or pleural effusion or pulmonary edema or lung mass or pneumothorax is seen. The heart size, pulmonary vasculature, mediastinum and both castillo are unremarkable. The osseous structures appear intact. Impression: No acute radiographic abnormality is seen. Electronically signed by: Serge Eckert MD (06/04/2018 2:15 PM) [facility]
== END 2018-06-04 14:34 | disposition home or self-care (01) ==
LOC: ER 12:44
DX: J10.1 Influenza due to other identified influenza virus with other respiratory manifestations (principal); K21.9 Gastro-esophageal reflux disease without esophagitis; Z87.442 Personal history of urinary calculi; Z90.49 Acquired absence of other specified parts of digestive tract; Z98.51 Tubal ligation status
CPT/HCPCS: 71046; 87804; 99284; J7512

== ENCOUNTER → 2018-06-13 | Outpatient (CLI) | payer OTHER ==
[2018-06-04 13:34] VITALS: BP 133/65
[~2018-06-13] MED LIST changes: +GUAI118L20 PO; +OSEL75CA PO
--- NOTE | 2018-06-13 13:11 | KCIC ---
CHEST PA LATERAL CLINICAL INDICATION: Bronchopneumonia, cough and fever for 10 days. COMPARISON: 06/04/2018 FINDINGS: Heart is normal in size. Bilateral prominent bronchovascular markings are seen. No focal consolidation. No pneumothorax or pleural effusion. Visualized bony thorax is within normal limits. IMPRESSION: Findings suggests bronchitis. No significant change when compared with exam. Electronically signed by: Miguel Carter DO (06/13/2018 1:06 PM) [id number]
== END | disposition home or self-care (01) ==
LOC: KCIC 12:33
PROVIDERS: ATTEND Physician Assistant Medical
DX: J18.0 Bronchopneumonia, unspecified organism (principal)
CPT/HCPCS: 71046

== ENCOUNTER → 2018-07-05 | Outpatient (CLI) | payer OTHER ==
--- NOTE | 2018-07-05 13:51 | KCIC ---
Examination: CT chest without contrast HISTORY: History of bronchopneumonia, cough, COPD exacerbation, chest tightness COMPARISON: None available TECHNIQUE: Axial CT images of chest were performed without contrast. Coronal and sagittal reformats are performed. Exposure: One or more of the following individualized dose reduction techniques were utilized for this examination: 1. Automated exposure control 2. Adjustment of the mA and/or kV according to patient size 3. Use of iterative reconstruction technique FINDINGS: The visualized thyroid gland grossly appears unremarkable. Central airways are patent. Heart size grossly appears unremarkable. No radiologically significant mediastinal lymphadenopathy identified. The lungs are clear There is diffuse decreased attenuation noted throughout the liver likely hepatic steatosis. The visualized spleen, adrenals grossly appears unremarkable. Cholecystectomy changes. Mild degenerative changes thoracic spine. IMPRESSION: 1. The lungs are clear. 2. Hepatic steatosis. Electronically signed by: Tonio Horvath MD (07/05/2018 1:48 PM) [facility]-[id number]
== END | disposition home or self-care (01) ==
LOC: KCIC CT 12:41
PROVIDERS: ATTEND Physician Assistant Medical
DX: J44.1 Chronic obstructive pulmonary disease with (acute) exacerbation (principal); J18.0 Bronchopneumonia, unspecified organism; Z90.49 Acquired absence of other specified parts of digestive tract
CPT/HCPCS: 71250

== ENCOUNTER → 2018-11-24 | Outpatient (CLI) | payer MEDICAID ==
--- NOTE | 2018-11-24 11:41 | KCIC ---
PQRS Compliance statement: One or more of the following individualized dose reduction techniques were utilized for this examination: 1. Automated exposure control. 2. Adjustment of the mA and/or kV according to patient size. 3. Use of iterative reconstruction technique. Indication:Sinusitis for 9 months. TECHNIQUE: CT of the maxillofacial bones without IV contrast multiplanar reformats. COMPARISON: None FINDINGS: The bilateral paranasal sinuses and mastoid air cells are well-aerated without evidence of mucoperiosteal thickening or polyps or mucous retention cysts. No fluid seen in the sinuses. No suspicious bony lesions. The orbits are within normal limits. Noncontrast appearance of the suprahyoid neck soft tissue is within normal limits. Bilateral temporomandibular joints are within normal limits. Visualized upper cervical spine within normal limits. The nasal septum is midline. IMPRESSION: No imaging evidence of acute or chronic sinusitis. Electronically signed by: Miguel Carter DO (11/24/2018 11:38 AM) [facility]
== END | disposition home or self-care (01) ==
LOC: KCIC CT 11:12
PROVIDERS: ATTEND Physician Assistant Medical
DX: J32.9 Chronic sinusitis, unspecified (principal); J45.909 Unspecified asthma, uncomplicated; F17.200 Nicotine dependence, unspecified, uncomplicated
CPT/HCPCS: 70486

== ENCOUNTER → 2019-07-09 | Outpatient (CLI) | payer MEDICAID ==
--- NOTE | 2019-07-09 11:12 | KCIC ---
MR of the left hip HISTORY: Left hip pain and instability, more severe lately. TECHNIQUE: Routine multiplanar sequences are obtained. FINDINGS: No evidence of acute fracture, marrow edema, bone destruction or femoral head osteonecrosis. No significant joint effusion. No evidence of labral tear or para labral cyst. No advanced DJD. Gluteus minimus tendon intact. Gluteus medius tendinosis with partial tearing but no high-grade tear or rupture. Hamstring tendon intact. Iliopsoas tendon intact. Rectus femoris tendon attachment intact. No abnormal soft tissue edema or fluid collection. Large [id number] coronal survey sequence demonstrates no acute findings at the contralateral hip or elsewhere in the [id number]. IMPRESSION: 1. Left gluteus medius tendinosis with partial tearing. 2. No other acute findings. Electronically signed by: Renzo Garber MD (07/09/2019 11:10 AM) [id number]
== END ==
LOC: KCIC MRI 08:26
PROVIDERS: ATTEND Physician Assistant Medical
DX: S76.012A Strain of muscle, fascia and tendon of left hip, initial encounter (principal); M76.02 Gluteal tendinitis, left hip; X58.XXXA Exposure to other specified factors, initial encounter; Y93.89 Activity, other specified; Y92.89 Other specified places as the place of occurrence of the external cause; Y99.8 Other external cause status
CPT/HCPCS: 73721

== ENCOUNTER → 2019-12-03 | Outpatient (CLI) | payer MEDICAID ==
--- NOTE | 2019-12-03 13:03 | KCIC ---
LUMBAR SPINE WO CONTRAST Date: 12/03/2019 11:00 AM Indication: LUMBAGO WITH SCIATICA LEFT. Left sided hip and leg pain x 4 yrs. NKI. Worsening gate. Comparison: CT abdomen pelvis 06/06/2017. Technique: Multi-planar multi-weighted magnetic resonance imaging of the lumbar spine was performed without intravenous contrast using the standard lumbar spine protocol. FINDINGS: The lumbar spine is normally aligned. No acute fracture. Mild multilevel degenerative disc desiccation and disc height loss. Bone marrow signal intensity is normal. The conus terminates at a normal level. No abnormal signal is seen within the visualized distal spinal cord. No clumping of intrathecal nerve roots. No soft tissue abnormality in the visualized abdomen or pelvis. T12-L1: No disc bulge. No facet arthropathy. No significant spinal stenosis or neural foraminal narrowing. L1-L2: No disc bulge. No facet arthropathy. No significant spinal stenosis or neural foraminal narrowing. L2-L3: No disc bulge. No facet arthropathy. No significant spinal stenosis or neural foraminal narrowing. L3-L4: Disc bulge. Mild facet arthropathy. No significant spinal stenosis. Mild right neural foraminal narrowing. L4-L5: Disc bulge. Mild right and moderate left facet arthropathy. No significant spinal stenosis. Mild right and severe left neural foraminal narrowing with abutment of the exiting left L4 nerve root. L5-S1: Disc bulge. Mild facet arthropathy. No significant spinal stenosis or neural foraminal narrowing. IMPRESSION: Lumbar spondylosis, worst at L4-5 where there is severe narrowing of the left neural foramen which abuts the left L4 nerve root. Correlate for radiculopathy. Electronically signed by: Enzo Pollard MD (12/03/2019 1:00 PM) [id number]
== END ==
LOC: KCIC MRI 10:44
PROVIDERS: ATTEND Physician Assistant Medical
DX: M47.26 Other spondylosis with radiculopathy, lumbar region (principal); M48.061 Spinal stenosis, lumbar region without neurogenic claudication; M54.42 Lumbago with sciatica, left side; M46.1 Sacroiliitis, not elsewhere classified
CPT/HCPCS: 72148

== ENCOUNTER 2019-12-11 20:08 | Emergency (ER) | payer MEDICAID ==
[~2019-12-11] VITALS: Ht 157.5 cm; Wt 94.0 kg
[2019-12-11 20:25] VITALS: BP 149/93
[2019-12-11] MEDS ORDERED: HYDROmorphone 2 MG/ML VIAL SQ ONE (20:45)
[2019-12-11] MEDS ORDERED: ONDANSETRON ODT 4 MG TAB.RAPDIS. PO ONE (20:45)
--- NOTE | 2019-12-11 20:51 | PHYS DOC ---
Past Medical History Past Medical History: Bronchitis, GERD, Kidney Stone, Sciatica, Sinusitis Additional Past Medical Histor: bulging discs, OSTEOARTHRITIS, STENOSIS Past Surgical History: Cholecystectomy, Tubal ligation, Other Additional Past Surgical Histo: renal stent, sinus surgery Smoking Status: Current Every Day Smoker Alcohol Use: Occasionally Drug Use: None General Adult EDM: Chief Complaint: PAIN CONTROL HPI: HPI: Patient is a 39 year old female who presents with complaints of chronic back pain for 3-1/2 years. Patient is here today stating that she was recently diagnosed with lumbar stenosis by an MRI that she had done. Today she reports that she was unable to fill the prescribed pain medication and is here requesting pain relief. Patient denies any fecal incontinence, urinary retention or any new onset weakness in the bilateral lower extremities or change in sensation. She reports she is able to ambulate without any difficulty and denied any chest pain, shortness of breath, fever or chills, recent illnesses, cough. Patient is scheduled to see a body technician/painter as well as a neurosurgeon. Review of Systems: Review of Systems: Constitutional: Denies fever or chills. [] Eyes: Denies change in visual acuity. [] HENT: Denies nasal congestion or sore throat. [] Respiratory: Denies cough or shortness of breath. [] Cardiovascular: Denies chest pain or edema. [] GI: Denies abdominal pain, nausea, vomiting, bloody stools or diarrhea. [] : Denies dysuria. [] Musculoskeletal: See HPI [] Integument: Denies rash. [] Neurologic: Denies headache, focal weakness or sensory changes. [] Endocrine: Denies polyuria or polydipsia. [] Lymphatic: Denies swollen glands. [] Psychiatric: Denies depression or anxiety. [] Heart Score: Risk Factors: Risk Factors: DM, Current or recent (<one month) smoker, HTN, HLP, family history of CAD, obesity. Risk Scores: Score 0 - 3: 2.5% MACE over next 6 weeks - Discharge Home Score 4 - 6: 20.3% MACE over next 6 weeks - Admit for Clinical Observation Score 7 - 10: 72.7% MACE over next 6 weeks - Early Invasive Strategies Current Medications: Current Medications Medications (Trade) Dose Ordered Sig/Travis Start Time Stop Time Status Last Admin Dose Admin Hydromorphone HCl (Dilaudid) 2 mg 1X ONCE 12/11/19 20:45 12/11/19 20:46 DC Ondansetron HCl (Zofran Odt) 4 mg 1X ONCE 12/11/19 20:45 12/11/19 20:46 DC Allergies: Allergies: Allergies Coded Allergies Type Severity Reaction Last Updated Verified No Known Drug Allergies 01/16/15 No Physical Exam: PE: Constitutional: Well developed, well nourished, no acute distress, non-toxic appearance. [] Neck: Normal range of motion, no tenderness, supple, no stridor. [] Cardiovascular:Heart rate regular rhythm, no murmur [] Lungs & Thorax: Bilateral breath sounds clear to auscultation [] Skin: Warm, dry, no erythema, no rash. [] Back: No CVA tenderness, bilateral iliolumbar muscle tenderness and pelvic brim tenderness.. [] Extremities: No tenderness, no cyanosis, no clubbing, ROM intact, no edema. [] Neurologic: Alert and oriented X 3, all dermatomes and myotomes of the lower extremities were tested and normal [] Psychologic: Tearful affect, judgement normal, mood normal. No SI or HI [] Current Patient Data: Vital Signs: Vital Signs Date Time Temp Pulse Resp B/P (MAP) Pulse Ox O2 Delivery O2 Flow Rate FiO2 12/11/19 20:25 97.5 87 16 149/93 (111) 96 Room Air 97.5 EKG: EKG: [] Radiology/Procedures: Radiology/Procedures: [] Course & Med Decision Making: Course & Med Decision Making Pertinent Labs and Imaging studies reviewed. (See chart for details) 2049-the patient was seen and evaluated. No evidence for an exigent medical or surgical problems identified at this time. I discussed with the patient reasons to return, need for follow-up and treatment plan. I encouraged her to continue to follow-up with her primary care physician is seems to be doing excellent job. I also reviewed the MRI and CT scan results with the patient that did not show any evidence for lumbar stenosis but did show an L4 left severe foraminal stenosis. [] Dragon Disclaimer: Dragon Disclaimer: This electronic medical record was generated, in whole or in part, using a voice recognition dictation system. Departure Departure Impression: Primary Impression: Radicular pain of left lower extremity Disposition: HOME, SELF-CARE Condition: IMPROVED Referrals: DAVID FUNES MD (PCP) Patient Instructions: Back Pain, Adult, Chronic Back Pain Justicifation of Admission Dx: Justifications for Admission: Justification of Admission Dx: N/A VAMSI CLARK MD Dec 11, 2019 20:51
== END 2019-12-11 21:35 | disposition home or self-care (01) ==
LOC: ER 20:08
DX: M79.605 Pain in left leg (principal); M54.5 Low back pain; R20.0 Anesthesia of skin; J42 Unspecified chronic bronchitis; K21.9 Gastro-esophageal reflux disease without esophagitis; F17.200 Nicotine dependence, unspecified, uncomplicated; Z87.442 Personal history of urinary calculi; Z90.49 Acquired absence of other specified parts of digestive tract; Z98.51 Tubal ligation status; Z98.890 Other specified postprocedural states
CPT/HCPCS: 96372; 99283; J1170

== ENCOUNTER → 2020-02-15 | Outpatient (CLI) | payer MEDICAID ==
--- NOTE | 2020-02-15 11:41 | RAD ---
Chest radiograph 02/15/2020 12:00 AM INDICATION: Acute bronchitis COMPARISON: 06/13/2018 TECHNIQUE: Frontal and lateral views of the chest are provided. FINDINGS: The cardiomediastinal silhouette is within normal limits. There are no pleural effusions. There is no pulmonary vascular congestion. There is no pneumothorax. Mild bronchial wall thickening suggestive of nonspecific bronchitis. No focal airspace consolidation. No significant osseous abnormality is identified. IMPRESSION: Nonspecific bronchitis without focal airspace consolidation. Electronically signed by: Debbie Clifton MD (02/15/2020 11:38 AM) [facility]LE[facility]
== END ==
LOC: RAD 11:01
PROVIDERS: ATTEND Physician Assistant Medical
DX: J20.9 Acute bronchitis, unspecified (principal)
CPT/HCPCS: 71046

== ENCOUNTER 2020-05-07 19:18 | Emergency (ER) | payer MEDICAID ==
[~2020-05-07] VITALS: Ht 157.5 cm; Wt 95.0 kg
[2020-05-07 20:30] VITALS: BP 130/81
--- NOTE | 2020-05-07 21:15 | PHYS DOC ---
Past Medical History Past Medical History: Arthritis, Bronchitis, GERD, Kidney Stone, Sciatica, Sinusitis Additional Past Medical Histor: bulging discs, OSTEOARTHRITIS, STENOSIS Past Surgical History: Cholecystectomy, Tubal ligation, Other Additional Past Surgical Histo: renal stent, sinus surgery Smoking Status: Current Every Day Smoker Alcohol Use: None Drug Use: None General Adult EDM: Chief Complaint: BACK PAIN OR INJURY HPI: HPI: Patient is a 40 year old female with a history of chronic low back pain with sciatica presenting to the ED today complaining of 8 out of 10 excruciating bilateral low back pain radiating to the right hip with into the right lower extremity that is chronic but he is not being relieved by her home medicine including oxycodone extended release as well as oxycodone as needed which she took at 5 PM. Patient denies any known injuries. Denies any loss of bowel/bladder function. She states the pain is worse on weightbearing. She states she has an appointment with her own doctor tomorrow. Patient states she had decompression surgery to her lumbar spine done in February. Review of Systems: Review of Systems: Constitutional: Denies fever or chills. [] GI: Denies abdominal pain, nausea, vomiting, bloody stools or diarrhea. [] : Denies dysuria. [] Musculoskeletal: Reports low back pain Integument: Denies rash. [] Neurologic: Denies headache, focal weakness or sensory changes. [] Psychiatric: Denies depression or anxiety. [] Heart Score: Risk Factors: Risk Factors: DM, Current or recent (<one month) smoker, HTN, HLP, family histo ry of CAD, obesity. Risk Scores: Score 0 - 3: 2.5% MACE over next 6 weeks - Discharge Home Score 4 - 6: 20.3% MACE over next 6 weeks - Admit for Clinical Observation Score 7 - 10: 72.7% MACE over next 6 weeks - Early Invasive Strategies Current Medications: Current Medications Medications (Trade) Dose Ordered Sig/Travis Start Time Stop Time Status Last Admin Dose Admin Hydromorphone HCl (Dilaudid) 1 mg 1X ONCE 05/07/20 21:30 05/07/20 21:31 Allergies: Allergies: Allergies Coded Allergies Type Severity Reaction Last Updated Verified No Known Drug Allergies 01/16/15 No Physical Exam: PE: Constitutional: Well developed, well nourished, no acute distress, non-toxic appearance. [] Abdomen: Bowel sounds normal, soft, no tenderness, no masses, no pulsatile masses. [] Skin: Warm, dry, no erythema, no rash. [] Back: No tenderness, no CVA tenderness. [] Extremities: No tenderness, no cyanosis, no clubbing, ROM intact, no edema. [] Neurologic: Alert and oriented X 3, normal motor function, normal sensory function, no focal deficits noted. [] Psychologic: Affect normal, judgement normal, mood normal. [] Current Patient Data: Vital Signs: Vital Signs Date Time Temp Pulse Resp B/P (MAP) Pulse Ox O2 Delivery O2 Flow Rate FiO2 05/07/20 20:30 98.2 86 16 130/81 (97) 99 Room Air 98.2 EKG: EKG: [] Radiology/Procedures: Radiology/Procedures: [] Course & Med Decision Making: Course & Med Decision Making Pertinent Labs and Imaging studies reviewed. (See chart for details) This is a 40-year-old female patient presenting to the ED today with chronic low back pain with sciatica. No cauda equina syndrome symptoms. She has an appointment with her doctor tomorrow. She takes oxycodone extended release as well as oxycodone as needed which is not relieving her pain. She states she normally comes to the ED for Dilaudid. She was given Dilaudid 1 mg on discharge. Nilton Disclaimer: Nilton Disclaimer: This electronic medical record was generated, in whole or in part, using a voice recognition dictation system. Departure Departure Impression: Primary Impression: Chronic back pain Qualified Codes: M54.41 - Lumbago with sciatica, right side; G89.29 - Other chronic pain Additional Impression: Chronic sciatica of right side Disposition: 01 DC HOME SELF CARE/HOMELESS Condition: STABLE Referrals: DAVID FUNES MD (PCP) follow up with your doctor tomorrow Patient Instructions: Back Pain, Adult Additional Instructions: You were seen for back pain. Please follow-up with your doctor tomorrow. ZOILA GUZMÁN APRN May 07, 2020 21:15
[2020-05-07] MEDS: HYDROmorphone 2 MG/ML VIAL IM ONE (21:30)
== END 2020-05-07 21:37 | disposition home or self-care (01) ==
LOC: ER 19:18
DX: G89.29 Other chronic pain (principal); M54.41 Lumbago with sciatica, right side; M25.551 Pain in right hip; K21.9 Gastro-esophageal reflux disease without esophagitis; F17.200 Nicotine dependence, unspecified, uncomplicated; Z96.0 Presence of urogenital implants; Z87.442 Personal history of urinary calculi; Z90.49 Acquired absence of other specified parts of digestive tract; Z98.51 Tubal ligation status
CPT/HCPCS: 96372; 99283; J1170

== ENCOUNTER → 2020-05-22 | Outpatient (CLI) | payer MEDICAID ==
[2020-05-07 20:30] VITALS: BP 130/81
--- NOTE | 2020-05-22 16:24 | KCIC ---
XR RT WRIST 3VIEWS DATE: 05/22/2020 1:45 PM INDICATION: Reason: RIGHT WRIST PAIN / Spl. Instructions: Fell 05/19/20 pain on anterior and lateral side. / History: COMPARISON: None. FINDINGS: Overlying splint material obscures fine osseous detail. Bones: There is no evidence of acute fracture or dislocation. Joints: The joint spaces are normal. Miscellaneous: None. IMPRESSION: No acute fracture. Electronically signed by: Enzo Pollard MD (05/22/2020 4:22 PM) [id number]
--- NOTE | 2020-05-22 16:26 | KCIC ---
XR KNEE 3 VIEWS DATE: 05/22/2020 1:45 PM INDICATION: BILATERAL KNEE PAIN. Pt fell on 05/19/20 with pain and anterior knee abrasions, swelling. COMPARISON: None. FINDINGS: Right: There is no evidence of acute fracture or dislocation. The joint spaces are normal. There is n o joint effusion. Left: There is no evidence of acute fracture or dislocation. The joint spaces are normal. There is no joint effusion. IMPRESSION: No evidence of acute fracture. Electronically signed by: Enzo Pollard MD (05/22/2020 4:23 PM) [id number]
== END ==
LOC: KCIC 13:34
PROVIDERS: ATTEND Physician Assistant Medical
DX: M25.531 Pain in right wrist (principal); M25.561 Pain in right knee; M25.562 Pain in left knee
CPT/HCPCS: 73110; 73562

== ENCOUNTER 2020-08-09 14:12 | Emergency (ER) | payer MEDICAID ==
[~2020-08-09] VITALS: Ht 157.5 cm; Wt 98.0 kg
[2020-08-09 14:45] VITALS: BP 140/93
[2020-08-09] MEDS ORDERED: HYDROmorphone 2 MG/ML VIAL IM ONE (15:00)
[2020-08-09] MEDS ORDERED: OXYC1TAB22 PO (15:07)
--- NOTE | 2020-08-09 15:08 | PHYS DOC ---
Past Medical History Past Medical History: Arthritis, Bronchitis, GERD, Kidney Stone, Sciatica, Sinusitis Additional Past Medical Histor: bulging discs, OSTEOARTHRITIS, STENOSIS Past Surgical History: Cholecystectomy, Tubal ligation, Other Additional Past Surgical Histo: renal stent, sinus surgery Smoking Status: Current Every Day Smoker Alcohol Use: None Drug Use: None General Adult EDM: Chief Complaint: LOWER BACK PAIN OR INJURY HPI: HPI: Patient is a 40 year old [f__sex] who presents with [] Review of Systems: Review of Systems: Constitutional: Denies fever or chills. [] Eyes: Denies change in visual acuity. [] HENT: Denies nasal congestion or sore throat. [] Respiratory: Denies cough or shortness of breath. [] Cardiovascular: Denies chest pain or edema. [] GI: Denies abdominal pain, nausea, vomiting, bloody stools or diarrhea. [] : Denies dysuria. [] Musculoskeletal: Denies back pain or joint pain. [] Integument: Denies rash. [] Neurologic: Denies headache, focal weakness or sensory changes. [] Endocrine: Denies polyuria or polydipsia. [] Lymphatic: Denies swollen glands. [] Psychiatric: Denies depression or anxiety. [] Heart Score: Risk Factors: Risk Factors: DM, Current or recent (<one month) smoker, HTN, HLP, family history of CAD, obesity. Risk Scores: Score 0 - 3: 2.5% MACE over next 6 weeks - Discharge Home Score 4 - 6: 20.3% MACE over next 6 weeks - Admit for Clinical Observation Score 7 - 10: 72.7% MACE over next 6 weeks - Early Invasive Strategies Current Medications: Current Medications Medications (Trade) Dose Ordered Sig/Travis Start Time Stop Time Status Last Admin Dose Admin Hydromorphone HCl (Dilaudid) 1 mg 1X ONCE 08/09/20 15:00 08/09/20 15:01 UNV Allergies: Allergies: Allergies Coded Allergies Type Severity Reaction Last Updated Verified No Known Drug Allergies 01/16/15 No Physical Exam: PE: Constitutional: Well developed, well nourished, no acute distress, non-toxic appearance. [] HENT: Normocephalic, atraumatic, bilateral external ears normal, oropharynx moist, no oral exudates, nose normal. [] Eyes: PERRLA, EOMI, conjunctiva normal, no discharge. [] Neck: Normal range of motion, no tenderness, supple, no stridor. [] Cardiovascular:Heart rate regular rhythm, no murmur [] Lungs & Thorax: Bilateral breath sounds clear to auscultation [] Abdomen: Bowel sounds normal, soft, no tenderness, no masses, no pulsatile ma sses. [] Skin: Warm, dry, no erythema, no rash. [] Back: No tenderness, no CVA tenderness. [] Extremities: No tenderness, no cyanosis, no clubbing, ROM intact, no edema. [] Neurologic: Alert and oriented X 3, normal motor function, normal sensory function, no focal deficits noted. [] Psychologic: Affect normal, judgement normal, mood normal. [] EKG: EKG: [] Radiology/Procedures: Radiology/Procedures: [] Course & Med Decision Making: Course & Med Decision Making Pertinent Labs and Imaging studies reviewed. (See chart for details) [] Dragon Disclaimer: Dragon Disclaimer: This electronic medical record was generated, in whole or in part, using a voice recognition dictation system. Departure Departure Impression: Primary Impression: Chronic back pain Qualified Codes: M54.5 - Low back pain; G89.29 - Other chronic pain Disposition: 01 DC HOME SELF CARE/HOMELESS Condition: STABLE Referrals: DAVID FUNES MD (PCP) HERMINIA MCMILLAN MD Patient Instructions: Chronic Back Pain Scripts Oxycodone/Apap 10-325 (PERCOCET 10-325 MG TABLET ) 1 Each Tablet 0.5-1 TAB PO PRN Q6HRS PRN for PAIN, #10 TAB 0 Refills Prov: MONIQUE CHRISTIANSON DO 08/09/20 MONIQUE CHRISTIANSON DO Aug 09, 2020 15:07
== END 2020-08-09 15:20 | disposition home or self-care (01) ==
LOC: ER 14:12
DX: G89.29 Other chronic pain (principal); M54.5 Low back pain; M19.90 Unspecified osteoarthritis, unspecified site; K21.9 Gastro-esophageal reflux disease without esophagitis; F17.200 Nicotine dependence, unspecified, uncomplicated; Z90.49 Acquired absence of other specified parts of digestive tract; Z87.442 Personal history of urinary calculi; Z98.51 Tubal ligation status; Z98.890 Other specified postprocedural states
CPT/HCPCS: 96372; 99283; J1170

== ENCOUNTER → 2020-10-15 | Outpatient (CLI) | payer MEDICAID ==
[~2020-10-15] MED LIST changes: +OXYC1TAB22 PO
--- NOTE | 2020-10-15 11:06 | KCIC ---
EXAM: Lumbar spine MRI without contrast. HISTORY: Lumbar stenosis. Sciatica. Left leg paresthesia. TECHNIQUE: Multiplanar, multisequence magnetic resonance imaging of the lumbar spine was performed wi thout contrast. COMPARISON: 12/03/2019 FINDINGS: There is mild lumbar scoliosis. There is minimal grade 1 anterolisthesis of L4 and L5, jake uring 3 mm. There is 2 mm retrolisthesis of L1 on L2. There is multilevel endplate remodeling. There is disc space narrowing multiple levels, with sparing of L5-S1. There is edema within the right great er than left L4 and L5 pedicles and spinous processes and within the soft tissues surrounding the L4- L5 facet joints, new compared to the prior exam. This is likely degenerative/inflammatory and due to interval left hemicolectomy surgery at L4-L5. There is a tiny fluid collection within the laminectomy decompression space which is likely due to a tiny seroma. The conus terminates at L1. At L1-L2, there is a mild disc bulge. There is minimal endplate remodeling. There is no stenosis. At L2-L3, there is a mild disc bulge. There is minimal endplate remodeling. There is mild facet arthr opathy. There is no stenosis. At L3-L4, there is a mild disc bulge. There is mild endplate remodeling. There is myhy-sx-[id number] bi lateral facet arthropathy. There is mild right and minimal left foraminal stenosis. At L4-L5, there is a left lateral recess to foraminal disc protrusion with 3 mm superior and inferior extrusion superimposed on a mild disc bulge and left lateral predominant endplate remodeling. There is severe left facet arthropathy. There are left hemilaminectomy changes. There is mild right and sev ere left foraminal stenosis with effacement of the exiting left L4 nerve root. There is also effaceme nt of the left lateral recess and abutment the traversing left L5 nerve root, likely due to scar/gran ulation tissue or extruded disc material. At L5-S1, there is mild lateral facet arthropathy. There is no stenosis. IMPRESSION: 1. Interval left hemilaminectomy changes at L4-L5. There has been slight interval increase in a left lateral recess to foraminal disc protrusion with slight superior and inferior extrusion or there is n ew scar/granulation tissue surrounding the previously demonstrated protrusion, contributing to severe left foraminal stenosis and effacement of the exiting left L4 nerve root and effacement of the left lateral recess with abutment the traversing left L5 nerve root. 2. Degenerative change at the remainder of the lumbar levels, described in detail above. This results in mild right and minimal left foraminal stenosis at L3-L4. 3. Edema within the left greater than right L4 and L5 pedicles and spinous processes, likely degenera tive/inflammatory or reactive given a history of interval surgery. No fracture is seen. Electronically signed by: Christelle Pavon MD (10/15/2020 11:04 AM) [id number]
--- NOTE | 2020-10-15 12:16 | KCIC ---
EXAM: Right back sonogram. HISTORY: Palpable lump. TECHNIQUE: Sonographic imaging of the right back at the site of palpable concern was performed. COMPARISON: MRI of the lumbar spine obtained on the same date. FINDINGS: There is a nonvascular hypoechogenic region of soft tissue at the site of palpable concern within the superficial soft tissues of the right lower back measuring approximately 5.0 cm x 1.0 cm. IMPRESSION: Suspected lipoma or encapsulated fat within the right posterior back soft tissues at the site of palpable concern. There is no correlate for this finding on the recent MRI. Continued clinica l follow-up of palpable abnormalities is recommended. Electronically signed by: Christelle Pavon MD (10/15/2020 12:14 PM) [id number]
== END ==
LOC: KCIC MRI 10:05
PROVIDERS: ATTEND Family Medicine
DX: M47.817 Spondylosis without myelopathy or radiculopathy, lumbosacral region (principal); M48.061 Spinal stenosis, lumbar region without neurogenic claudication; M99.73 Connective tissue and disc stenosis of intervertebral foramina of lumbar region; R20.2 Paresthesia of skin; M79.89 Other specified soft tissue disorders
CPT/HCPCS: 72148; 76881

== ENCOUNTER 2020-10-19 21:52 | Emergency (ER) | payer MEDICAID ==
[~2020-10-19] VITALS: Ht 157.5 cm; Wt 100.0 kg
--- NOTE | 2020-10-19 23:23 | PHYS DOC ---
Past Medical History Past Medical History: Arthritis, Bronchitis, GERD, Kidney Stone, Sciatica, Sinusitis Additional Past Medical Histor: bulging discs, OSTEOARTHRITIS, STENOSIS Past Surgical History: Cholecystectomy, Tubal ligation, Other Additional Past Surgical Histo: renal stent, sinus surgery Smoking Status: Current Every Day Smoker Alcohol Use: None Drug Use: None General Adult EDM: Chief Complaint: MECHANICAL FALL HPI: HPI: Patient is a 40 year old female that presents with the chief complaint of back, hip and knee pain. Patient states this AM her left leg gave out. Patient ended up on the floor. Post fall patient had pain in her left shoulder/back, left lumbar/flank, left hip and knee. Pain has increased since fall. Self treatment with minimal relief with motrin. Patient arrived via POV-- accompanied by her mother. On exam -- no deformities of extremities noted. Review of Systems: Review of Systems: Constitutional: Denies fever or chills. [] Eyes: Denies change in visual acuity. [] HENT: Denies nasal congestion or sore throat. [] Respiratory: Denies cough or shortness of breath. [] Cardiovascular: Denies chest pain or edema. [] GI: Denies abdominal pain, nausea, vomiting, bloody stools or diarrhea. [] : Denies dysuria. [] Musculoskeletal: Denies back pain or joint pain. [] Integument: Denies rash. [] Neurologic: Denies headache, focal weakness or sensory changes. [] Endocrine: Denies polyuria or polydipsia. [] Lymphatic: Denies swollen glands. [] Psychiatric: Denies depression or anxiety. [] Heart Score: C/O Chest Pain: N/A Risk Factors: Risk Factors: DM, Current or recent (<one month) smoker, HTN, HLP, family history of CAD, obesity. Risk Scores: Score 0 - 3: 2.5% MACE over next 6 weeks - Discharge Home Score 4 - 6: 20.3% MACE over next 6 weeks - Admit for Clinical Observation Score 7 - 10: 72.7% MACE over next 6 weeks - Early Invasive Strategies Allergies: Allergies: Allergies Coded Allergies Type Severity Reaction Last Updated Verified No Known Drug Allergies 01/16/15 No Physical Exam: PE: Constitutional: Well developed, well nourished, no acute distress, non-toxic appearance. [] HENT: Normocephalic, atraumatic, bilateral external ears normal, oropharynx moist, no oral exudates, nose normal. [] Eyes: PERRLA, EOMI, conjunctiva normal, no discharge. [] Neck: Normal range of motion, no tenderness, supple, no stridor. [] Cardiovascular:Heart rate regular rhythm, no murmur [] Lungs & Thorax: Bilateral breath sounds clear to auscultation [] Abdomen: Bowel sounds normal, soft, no tenderness, no masses, no pulsatile masses. [] Skin: Warm, dry, no erythema, no rash. [] Back: No tenderness, no CVA tenderness. [] Extremities: No tenderness, no cyanosis, no clubbing, ROM intact, no edema. [] Neurologic: Alert and oriented X 3, normal motor function, normal sensory function, no focal deficits noted. [] Psychologic: Affect normal, judgement normal, mood normal. [] EKG: EKG: [] Radiology/Procedures: Radiology/Procedures: [] Impression: Wet read x-ray Hip, lumbar spine, knee No acute fractures or dislocation Course & Med Decision Making: Course & Med Decision Making Pertinent Labs and Imaging studies reviewed. (See chart for details) [] Patient was evaluated for chief complaint. Work-up consisted of radiologic imaging. Treatment included Toradol, [place], Flexeril. No acute traumatic injuries on x-ray findings. Patient will be discharged home with [place] and Flexeril Dragon Disclaimer: Dragon Disclaimer: This electronic medical record was generated, in whole or in part, using a voice recognition dictation system. Departure Departure Impression: Primary Impression: Fall Additional Impressions: Knee pain, acute Lumbosacral strain Hip pain Disposition: 01 HOME / SELF CARE / HOMELESS Condition: STABLE Referrals: PALMA CARDOZA PA-C (PCP) Patient Instructions: Back Pain, Adult, Fall Prevention and Home Safety, Hip Pain, Knee Pain Scripts Cyclobenzaprine Hcl (CYCLOBENZAPRINE HCL) 10 Mg Tablet 1 TAB PO TID, #30 TAB Prov: SAIDA COTA DO 10/20/20 Hydrocodone Bit/Acetaminophen (HYDROCODONE-APAP 5-325 ) 1 Tab Tablet 1 TAB PO PRN Q6HRS PRN for PAIN, #14 TAB 0 Refills Prov: SAIDA COTA DO 10/20/20 SAIDA COTA DO Oct 19, 2020 23:23
[2020-10-19] MEDS ORDERED: KETOROLAC 60 MG/2 ML VIAL. IM ONE (23:30)
[2020-10-19] MEDS ORDERED: CYCLOBENZAPRINE 10 MG TABLET. PO ONE (23:30)
[2020-10-19] MEDS ORDERED: HYDROcodone/APAP 5/325MG 1 TAB TABLET PO ONE (23:30)
[2020-10-20] MEDS ORDERED: HYDR-2761 PO (00:11)
[2020-10-20] MEDS ORDERED: CYCL10TA2 PO (00:11)
[2020-10-20] MEDS ORDERED: MORPHINE SULFATE 2 MG/ML VIAL. IM ONE (00:15)
[2020-10-20 00:24] VITALS: BP 168/105
--- NOTE | 2020-10-20 01:55 | RAD ---
Left knee 3 views: Reason for examination: Fell with back, knee and hip pain. 3 views of the left knee show no evidence of fracture or dislocation. The bone density is normal. No abnormal periosteal reaction is seen. Joint spaces are maintained. IMPRESSION: No acute bony abnormality at the left knee. Lumbar spine 3 views: No acute fracture or subluxation is seen. The vertebral bodies are normally aligned anteriorly and po steriorly. Posterior elements are intact. The intervertebral discs are maintained. No abnormality see n at the sacrum or sacroiliac joints. IMPRESSION: No acute abnormality evident in the lumbar spine. Pelvis and left hip: No acute bony abnormality seen in the pelvis. Proximal femur are intact and hip joints are maintained . No gross abnormality seen at the sacrum or sacroiliac joints. 2 views of the left hip show no evidence of fracture or dislocation. The bone density is normal. No a bnormal periosteal reaction is seen in the hip joint is maintained. IMPRESSION: No acute bony abnormality of the pelvis or left hip. Electronically signed by: Marcie Lawrence MD (10/20/2020 1:52 AM) MICHELE
== END 2020-10-20 00:27 | disposition home or self-care (01) ==
LOC: ER 21:52
DX: S39.012A Strain of muscle, fascia and tendon of lower back, initial encounter (principal); M25.552 Pain in left hip; M25.562 Pain in left knee; K21.9 Gastro-esophageal reflux disease without esophagitis; F17.200 Nicotine dependence, unspecified, uncomplicated; Z87.442 Personal history of urinary calculi; Z90.49 Acquired absence of other specified parts of digestive tract; Z98.51 Tubal ligation status; W18.39XA Other fall on same level, initial encounter; Y93.89 Activity, other specified; Y92.89 Other specified places as the place of occurrence of the external cause; Y99.8 Other external cause status
CPT/HCPCS: 72100; 73502; 73562; 96372; 99284; J1885; J2270

== ENCOUNTER → 2020-11-11 | Outpatient (CLI) | payer MEDICAID ==
[2020-10-20 00:24] VITALS: BP 168/105
[~2020-11-11] MED LIST changes: +ALPR0.5T6 PO; +B12; +CEFD300C PO; +FLUT9.9S NS; +LINZESS145 MCG PO; +ONDA8TAB15 PO; +OXYC30TA64 PO; +PANT40TA6 PO; +PROM25TA10 PO; +TIZA4TAB2 PO
== END ==
LOC: LAB 10:18
PROVIDERS: ATTEND Surgery
DX: U07.1 COVID-19 (principal); Z01.812 Encounter for preprocedural laboratory examination; D17.9 Benign lipomatous neoplasm, unspecified
CPT/HCPCS: U0003; U0005

== ENCOUNTER 2020-12-23 10:02 | Day surgery (SDC) | payer MEDICAID ==
[2020-12-19 12:28] VITALS: BP 168/105
[~2020-12-23] VITALS: Ht 157.5 cm; Wt 100.5 kg
[~2020-12-23 10:02] MED LIST changes: +AMOX1TAB61 PO; +HYDROmorphone 2 MG/ML VIAL IVP PRN; +IV RINGERS,LACTATED 1000ML 1,000 ML IV SCH; +MORPHINE SULFATE 2 MG/ML INJ. IVP PRN; +fentaNYL PF VIAL 100 MCG/2 ML VIAL IVP PRN
[2020-12-23] MEDS ORDERED: DEXAMETHASONE SOD PHOS 4 MG/ML VIAL ONE ×2 (10:13→11:50)
[2020-12-23] MEDS ORDERED: ONDANSETRON PF 4 MG/2 ML VIAL. ONE ×2 (10:13→13:19)
[2020-12-23] MEDS ORDERED: PROPOFOL 10 MG/ML (20ML) VIAL. IV ONE ×2 (10:13→12:43)
[2020-12-23] MEDS ORDERED: MIDAZOLAM HCL/PF 2 MG/2 ML VIAL. ONE (10:13)
[2020-12-23] MEDS ORDERED: fentaNYL PF VIAL 100 MCG/2 ML VIAL ONE ×2 (10:13→12:11)
[2020-12-23] MEDS ORDERED: LIDOCAINE 2% PF 5 ML VIAL. ONE (10:14)
[2020-12-23] MEDS ORDERED: BUPIVACAINE-EPI 0.25%-1:200000 MPF 30 ML VIAL. ONE (10:19)
[2020-12-23 10:35] VITALS: BP 138/73
[2020-12-23] MEDS ORDERED: ROCURONIUM 50 MG/5 ML VIAL. ONE (11:25)
--- NOTE | 2020-12-23 11:29 | PDOC1 ---
History and Physical Date of Admission Date of Admission DATE: 12/23/20 TIME: 11:26 Identification/Chief Complaint Chief Complaint Right lower back mass Source Source: Patient History of Present Illness History of Present Illness 40-year-old female with complaints enlarging mass in the right lower back that is becoming more painful over the last year been present for about 5 years Past Medical History Cardiovascular: No pertinent hx Pulmonary: No pertinent hx GI: No pertinent hx Heme/Onc: No pertinent hx Hepatobiliary: No pertinent hx Psych: Depression Musculoskeletal: low back pain Rheumatologic: Fibromyalgia Infectious disease: No pertinent hx ENT: No pertinent hx Renal/: No pertinent hx Endocrine: No pertinent hx Dermatology: No pertinent hx Past Surgical History Past Surgical History: Cholecystectomy, Tubal Ligation, Other (Gastric sleeve, spinal surgery) Family History Family History: No Significant Social History Smoke: No ALCOHOL: none Current Medications Current Medications Current Medications Fentanyl Citrate (Fentanyl 2ml Vial) 25 mcg PRN Q5MIN PRN IVP MILD PAIN 1-3; Start 12/23/20 at 06:00; Stop 12/24/20 at 05:59 Fentanyl Citrate (Fentanyl 2ml Vial) 50 mcg PRN Q5MIN PRN IVP MODERATE PAIN 4- 6; Start 12/23/20 at 06:00; Stop 12/24/20 at 05:59 Morphine Sulfate (Morphine Sulfate) 1 mg PRN Q10MIN PRN IVP SEVERE PAIN 7-10; Start 12/23/20 at 06:00; Stop 12/24/20 at 05:59 Ringer's Solution 1,000 ml @ 30 mls/hr Q24H IV Last administered on 12/23/20at 10:44; Start 12/23/20 at 06:00; Stop 12/23/20 at 17:59 Hydromorphone HCl (Dilaudid) 0.5 mg PRN Q10MIN PRN IVP SEVERE PAIN 7-10, 2nd CHOICE; Start 12/23/20 at 06:00; Stop 12/24/20 at 05:59 Prochlorperazine Edisylate (Compazine) 5 mg PACU PRN PRN IVP NAUSEA, MRX1; Start 12/23/20 at 06:00; Stop 12/24/20 at 05:59 Fentanyl Citrate (Fentanyl 2ml Vial) 100 mcg STK-MED ONCE .ROUTE ; Start 12/23/20 at 10:13; Stop 12/23/20 at 10:13; Status DC Midazolam HCl (Versed) 2 mg STK-MED ONCE .ROUTE ; Start 12/23/20 at 10:13; Stop 12/23/20 at 10:14; Status DC Propofol (Diprivan) 200 mg STK-MED ONCE IV ; Start 12/23/20 at 10:13; Stop 12/23/20 at 10:14; Status DC Ondansetron HCl (Zofran) 4 mg STK-MED ONCE .ROUTE ; Start 12/23/20 at 10:13; Stop 12/23/20 at 10:14; Status DC Dexamethasone Sodium Phosphate (Decadron) 4 mg STK-MED ONCE .ROUTE ; Start 12/23/20 at 10:13; Stop 12/23/20 at 10:14; Status DC Lidocaine HCl (Lidocaine Pf 2% Vial) 5 ml STK-MED ONCE .ROUTE ; Start 12/23/20 at 10:14; Stop 12/23/20 at 10:14; Status DC Bupivacaine HCl/ Epinephrine Bitart (Sensorcaine-Epi 0.25%-1:[id number] Mpf) 30 ml STK-MED ONCE .ROUTE ; Start 12/23/20 at 10:19; Stop 12/23/20 at 10:19; Status DC Cefazolin Sodium/ Dextrose 50 ml @ 100 mls/hr 1X PREOP PRN IV PRIOR TO PROCEDURE; Start 12/24/20 at 06:00; Stop 12/24/20 at 18:00 Cefazolin Sodium/ Dextrose 50 ml @ As Directed STK-MED ONCE IV ; Start 12/23/20 at 10:59; Stop 12/23/20 at 10:59; Status DC Active Scripts Active Percocet 10-325 Mg Tablet (Oxycodone/Acetaminophen) 1 Each Tablet 0.5-1 Tab PO PRN Q6HRS PRN Orphenadrine Citrate 100 Mg Tablet.er 100 Mg PO Q12HR PRN Reported Alprazolam 0.5 Mg Tablet 1 Tab PO PRN BID PRN [B-12 monthly injecti] Q4WK Tizanidine Hcl 4 Mg Tablet 1 Tab PO Q8HRS Linzess (Linaclotide) 145 Mcg Capsule 145 Mcg PO DAILY07 Flonase Allergy Relief (Fluticasone Propionate) 9.9 Ml [place].susp 2 Sprays NS DAILY Pantoprazole Sodium 40 Mg Tablet.dr 1 Tab PO BID Oxycontin (Oxycodone HCl) 30 Mg Tab.er.12h 1 Tab PO Q8HRS Ondansetron Odt (Ondansetron) 8 Mg Tab.rapdis 1 Tab PO TID Promethazine Hcl 25 Mg Tablet 1 Tab PO PRN Q8HRS PRN Sumatriptan Succinate 100 Mg Tablet 50 Mg PO ONCE PRN Ibuprofen 400 Mg Tablet 200 Mg PO PRN Q6HRS PRN Allergies Allergies: Coded Allergies: No Known Drug Allergies (Unverified , 12/23/20) ROS Musculoskeletal: Yes Pain In: (Lower back) Physical Exam General: Alert, Oriented X3, Cooperative, No acute distress, Other (Obese) HEENT: Atraumatic, EOMI Lungs: Clear to auscultation, Normal air movement Heart: RRR, no murmurs Abdomen: Normal bowel sounds, Soft, No tenderness Extremities: No edema Skin: No significant lesion, Other (Large lipomatous mass lower right back) Vitals Vitals Vital Signs Date Time Temp Pulse Resp B/P (MAP) Pulse Ox O2 Delivery O2 Flow Rate FiO2 12/23/20 10:39 98.4 89 22 138/73 97 Room Air 98.4 Labs Labs Laboratory Tests Test 12/23/20 09:40 Bedside Urine HCG, Qualitative Hcg negative (Negative) Laboratory Tests Test 12/23/20 09:40 Bedside Urine HCG, Qualitative Hcg negative (Negative) VTE Prophylaxis Ordered VTE Prophylaxis Devices: Yes VTE Pharmacological Prophylaxi: Contraindicated Assessment/Plan Assessment/Plan Large subcutaneous mass right lower back Justifications for Admission Other Justification SAM CHUNG MD Dec 23, 2020 11:29
[2020-12-23] MEDS ORDERED: FAMOTIDINE 20 MG/2 ML VIAL ONE (12:08)
[2020-12-23] MEDS ORDERED: GLYCOPYRROLATE 1 MG/5 ML VIAL. ONE (12:25)
[2020-12-23] MEDS ORDERED: NEOSTIGMINE METHYLSULFATE 5 MG/5 ML SYRINGE. ONE (12:25)
[2020-12-23] MEDS ORDERED: KETOROLAC 30 MG/ML VIAL. ONE (12:28)
[2020-12-23] MEDS ORDERED: SEVOFLURANE 31 TO 60 MINUTES. IH ONE (12:33)
[2020-12-23] MEDS ORDERED: PHENYLEPHRINE in 0.9% NACL PF 1 MG/10 ML SYRINGE. IV ONE (12:36)
--- NOTE | 2020-12-23 12:38 | PDOC4 ---
Operative Note Operative Note Date: December 23, 2020 at 1236 Preoperative diagnosis: Right lower back mass Postoperative diagnosis: Same Procedure: Excision of right lower back mass Surgeon: Kendrick Specimen: Right lower back mass 12 x 10 cm Dictation: Patient is a 40-year-old female with complaints of a mass in her right lower back that is been present for about 5 years and been getting larger as well as more painful over the last year. Procedure of excision was explained to the patient detail risk-benefit were also discussed including bleeding infection alternatives to this procedure also discussed with the patient who seemed to understand and gave both verbal and written consent to have the procedure performed. Patient was taken to the operating room placed in supine position general anesthesia was initiated once patient was sleeping intubated she was repositioned in the prone positioning her lower back was prepped and draped usual sterile fashion using ChloraPrep. Area over the mass was injected with quarter percent Marcaine with epinephrine incision was made with 10 blade scalpel was carried down through the subcutaneous tissue using electrocautery right hemostasis appeared to be a lipomatous mass 12 x 10 cm this was excised with electrocautery. The excision included 1 cm margin. The mass was sent for pathology the wound was then closed in 2 layers of deep layer running 3-0 Vicryl and the skin was reapproximated for subcuticular Monocryl Mastisol Steri-Strips and island dressings were applied. Patient was awakened and extubated in the operating room taken to recovery in stable condition all sponge instrument needle counts listed as correct estimated blood loss 20 mL SAM CHUNG MD Dec 23, 2020 12:38
[2020-12-23] MEDS ORDERED: OXYC-325 PO (12:41)
--- NOTE | 2020-12-23 12:42 | DISCH ---
DISCHARGE INSTRUCTIONS Condition on Discharge Condition on Discharge: Stable Activity After Discharge Activity Instructions for Disc: Avoid exertion Diet after Discharge Diet after Discharge: Regular Wound Incision Care Other wound/incision instructi: May shower in 24 hours Contacting the after DC Call your doctor for: If your condition worsens Follow-Up Follow up with: Dr. Chung in 2 weeks SAM CHUNG MD Dec 23, 2020 12:42
[2020-12-23] MEDS: PROCHLORPERAZINE 10 MG/2 ML VIAL. IVP PRN ×2 (13:00→13:10)
[2020-12-23] MEDS ORDERED: PROCHLORPERAZINE 10 MG/2 ML VIAL. ONE (13:01)
[2020-12-23] MEDS ORDERED: oxyCODONE/APAP 5/325 1 TAB TABLET PO ONE (13:30)
[2020-12-23] MEDS ORDERED: ONDANSETRON PF 4 MG/2 ML VIAL. IVP ONE (13:30)
[2020-12-23 13:38] VITALS: BP 109/53
== END 2020-12-23 14:12 | disposition home or self-care (01) ==
LOC: SURG 10:02
PROVIDERS: ATTEND Surgery
DX: D17.1 Benign lipomatous neoplasm of skin and subcutaneous tissue of trunk (principal); M79.7 Fibromyalgia; F32.9 Major depressive disorder, single episode, unspecified; K21.9 Gastro-esophageal reflux disease without esophagitis; E66.9 Obesity, unspecified; F41.9 Anxiety disorder, unspecified; Z79.899 Other long term (current) drug therapy; Z90.49 Acquired absence of other specified parts of digestive tract; Z98.51 Tubal ligation status; Z98.890 Other specified postprocedural states
CPT/HCPCS: 21931; 81025; A4364; A4930; A6402; J0690; J0780; J1100; J1885; J2250; J2370; J2405; J2704; J2710; J3010; J3490; A4452

== ENCOUNTER 2021-03-30 20:41 | Emergency (ER) | payer MEDICAID ==
[~2021-03-30] VITALS: Ht 157.5 cm; Wt 107.3 kg
[~2021-03-30 20:41] MED LIST changes: +CYCL10TA19 PO; -CYCL10TA2 PO; -HYDROmorphone 2 MG/ML VIAL IVP PRN; -IV RINGERS,LACTATED 1000ML 1,000 ML IV SCH; -MORPHINE SULFATE 2 MG/ML INJ. IVP PRN; +OXYC-325 PO; +TIZA-75 PO; -TIZA4TAB2 PO; -fentaNYL PF VIAL 100 MCG/2 ML VIAL IVP PRN
[2021-03-30 21:25] VITALS: BP 137/87
--- NOTE | 2021-03-30 22:49 | PHYS DOC ---
Past Medical History Past Medical History: Arthritis, Bronchitis, GERD, Kidney Stone, Sciatica, Sinusitis Additional Past Medical Histor: bulging discs, OSTEOARTHRITIS, STENOSIS Past Surgical History: Cholecystectomy, Tubal ligation, Other Additional Past Surgical Histo: renal stent, sinus surgery Smoking Status: Current Every Day Smoker Alcohol Use: None Drug Use: None General Adult EDM: Chief Complaint: POST-OP PROBLEM HPI: HPI: Patient is a 41 year old female presents with the chief complaint of right flank pain. Patient with history of cyst removal right flank approximately 2 months ago. Patient states she followed up post operatively and hand no complications. Patient states over the last 2 weeks she has noticed increased swelling and has had drainage from wound. This afternoon patient hit right flank- area of surgical wound on a door knob. Patient states she has had intense pain in this area after injury and increased swelling. Patient denies fever or chills. Area is tender to palpation. There is no drainage from site and no overlying cellulitis. Area is not warm to the touch. Review of Systems: Review of Systems: Constitutional: Denies fever or chills. [] Eyes: Denies change in visual acuity. [] HENT: Denies nasal congestion or sore throat. [] Respiratory: Denies cough or shortness of breath. [] Cardiovascular: Denies chest pain or edema. [] GI: Denies abdominal pain, nausea, vomiting, bloody stools or diarrhea. [] : Denies dysuria. [] Musculoskeletal: Denies back pain or joint pain. [] Integument: Denies rash. [positive swelling soft tissues swelling] Neurologic: Denies headache, focal weakness or sensory changes. [] Endocrine: Denies polyuria or polydipsia. [] Lymphatic: Denies swollen glands. [] Psychiatric: Denies depression or anxiety. [] Heart Score: C/O Chest Pain: N/A Risk Factors: Risk Factors: DM, Current or recent (<one month) smoker, HTN, HLP, family history of CAD, obesity. Risk Scores: Score 0 - 3: 2.5% MACE over next 6 weeks - Discharge Home Score 4 - 6: 20.3% MACE over next 6 weeks - Admit for Clinical Observation Score 7 - 10: 72.7% MACE over next 6 weeks - Early Invasive Strategies Allergies: Allergies: Allergies Coded Allergies Type Severity Reaction Last Updated Verified No Known Drug Allergies 12/23/20 No Physical Exam: PE: General: alert, no acute distress. Skin: warm, dry and intact, no erythema, no rash. HENT: bilateral external ears normal, oropharynx moist, nose normal. Head:: Normocephalic, atraumatic. Neck: Trachea midline. Eyes: EOMI, Normal conjunctiva, No drainage CARDIOVASCULAR: Regular rate and rhythm RESPIRATORY: No respiratory distress Back: Full range of motion. MUSCULOSKELETAL: Full range of motion of bilateral upper and lower extremities. GASTROINTESTINAL: Abdomen soft without rebound or guarding. NEUROLOGICAL: Alert and noted to person, place and time. No neurological deficits observed Psychiatric: Cooperative. Normal judgment Skin - right flank palpable fluid area is tender to palpation there is no open wounds there is no drainage. There is a surgical scar, there also appears to be a healing scar which is approximately 8 cm in length is linear healing scab. The area is not warm to touch. The area is tender to palpation pain is reproducible. Current Patient Data: Labs: Laboratory Tests Test 03/30/21 21:29 POC Urine HCG, Qualitative Hcg negative (Negative) Vital Signs: Vital Signs Date Time Temp Pulse Resp B/P (MAP) Pulse Ox O2 Delivery O2 Flow Rate FiO2 03/30/21 21:25 98.2 83 19 137/87 (104) 95 Room Air 98.2 EKG: EKG: [] Radiology/Procedures: Radiology/Procedures: [] Course & Med Decision Making: Course & Med Decision Making Pertinent Labs and Imaging studies reviewed. (See chart for details) [] Patient's pain was treated with fentanyl. Pain improved post treatment. Ultrasound performed shows a complex fluid--seroma versus hematoma versus abscess. Discussed hospital admission with general surgery consult. Patient would prefer to go home. Patient will be prescribed antibiotic. I will also change her pain medication to Ultram and naproxen. Patient may continue her currently prescribed narcotic pain medication as need ed. Patient needs to follow-up with her general surgeon for further evaluation for possible aspiration or incision and drainage if symptoms continue. Patient also advised to return to the ER for reevaluation if symptoms persist get worse or any new concerning symptoms arise. Dragon Disclaimer: [place] Disclaimer: This electronic medical record was generated, in whole or in part, using a voice recognition dictation system. Departure Departure Impression: Primary Impression: Contusion Additional Impression: Soft tissue swelling Referrals: PALMA CARDOZA PA-C (PCP) Patient Instructions: Contusion, Hematoma Scripts Naproxen (NAPROSYN) 500 Mg Tablet 500 MG PO BID, #30 TAB Prov: SAIDA COTA I DO 03/30/21 Tramadol Hcl (ULTRAM) 50 Mg Tablet 1 TAB PO PRN Q6HRS PRN for pain MDD 4 Tablet(s) for 7 Days, #28 TAB 0 Refills Prov: SAIDA COTA DO 03/30/21 Cephalexin (KEFLEX) 500 Mg Capsule 500 MG PO QID for 10 Days, #40 CAP Prov: SAIDA COTA I DO 03/30/21 SAIDA COTA I DO Mar 30, 2021 22:49
--- NOTE | 2021-03-30 22:53 | RAD ---
EXAM: ULTRASOUND SOFT TISSUE LOWER BACK CLINICAL HISTORY: Reason: RIGHT FLANK SOFT TISSUE / Spl. Instructions: / History: COMPARISON: None available. TECHNIQUE: Limited ultrasound examination of the lower back soft tissue FINDINGS: In the area of concern there is a complex fluid collection measuring approximately 13.3 x 7.7 x 5.2 c m with internal septation. Within this fluid collection there is a soft tissue mass measuring approxi mately 3.3 x 3.0 x 1.5 cm. No internal vascularity is identified. IMPRESSION: The area of concern there is a fluid collection measuring 13.3 x 7.7 x 5.2 cm which is moderately com plex may relate to hematoma, seroma or abscess. Within this collection there is a soft tissue nodule which measures up to 3.3 cm. Further evaluation with MRI is recommended to better evaluate. Electronically signed by: Sierra Sellers MD (03/30/2021 10:50 PM) BAR
[2021-03-30] MEDS ORDERED: CEPH500C PO (23:27)
[2021-03-30] MEDS ORDERED: TRAM-48 PO (23:27)
[2021-03-30] MEDS ORDERED: NAPR-683 PO (23:28)
== END 2021-03-31 00:03 | disposition home or self-care (01) ==
LOC: ER 20:41
DX: S30.1XXA Contusion of abdominal wall, initial encounter (principal); K21.9 Gastro-esophageal reflux disease without esophagitis; F17.200 Nicotine dependence, unspecified, uncomplicated; Z90.49 Acquired absence of other specified parts of digestive tract; Z98.51 Tubal ligation status; W22.8XXA Striking against or struck by other objects, initial encounter; Y93.89 Activity, other specified; Y92.89 Other specified places as the place of occurrence of the external cause; Y99.8 Other external cause status
CPT/HCPCS: 76705; 81025; 99284

== ENCOUNTER → 2021-06-15 | Outpatient (CLI) | payer MEDICAID ==
[~2021-06-15] MED LIST changes: +CEPH500C PO; +NAPR-683 PO; +TRAM-48 PO
--- NOTE | 2021-06-15 10:22 | KCIC ---
EXAM: Lumbar spine MRI without contrast. HISTORY: Lumbar stenosis. Pain. Nonhealing incision lipoma. TECHNIQUE: Multiplanar, multisequence magnetic resonance imaging of the lumbar spine was performed wi thout contrast. COMPARISON: 10/15/2020 FINDINGS: There is mild lumbar scoliosis and hyperlordosis. There is 4 mm grade 1 anterolisthesis of L4 on L5. There is degenerative endplate remodeling and disc desiccation and disc space narrowing at multiple levels. There is preservation of the disc space at L5-S1. There are few small endplate Schmo rl's nodes. There are few osseous hemangiomas. There is no suspicious osseous lesion. There is no acu te or subacute fracture. The conus terminates at L1. There is a complex fluid collection within the right anterior flank and superior buttock soft tissues , partially included on the [id number] and measuring at least 5.0 cm in maximum dimension. There are small simple bilateral renal cysts. Follow-up is not routinely performed for simple cysts. At T11-T12, there is a shallow left lateral recess disc protrusion superimposed on a disc bulge and e ndplate remodeling. There is no stenosis. At T12-L1, there is no stenosis. At L1-L2, there is a right recess disc protrusion with minimal superior and inferior extrusion superi mposed on a disc bulge and endplate remodeling. There is no stenosis. At L2-L3, there is a disc bulge and endplate remodeling. There is mild bilateral facet arthropathy. T here is no stenosis. At L3-L4, there is a disc bulge and endplate remodeling. There is mild bilateral facet arthropathy. T here is mild right foraminal stenosis with abutment or near abutment the exiting right L3 nerve root. At L4-L5, there is a left foraminal to extraforaminal disc protrusion and 3 mm superior extrusion and there is a shallow broad-based right foraminal to extra foraminal disc protrusion. These are superim posed on a disc bulge and left lateral predominant endplate remodeling. There is moderate left greate r than right facet arthropathy. There are left hemilaminectomy changes. There is grade 1 anterolisthe sis. There is mild right and moderate left foraminal stenosis. There is narrowing of the left lateral recess. At L5-S1, there is no stenosis. IMPRESSION: 1. L4-L5: Left foraminal to extra foraminal disc protrusion and slight extrusion, contributing to mil [id number] left foraminal stenosis, slightly decreased compared to the prior exam. There is also a shallow right foraminal to extra foraminal disc protrusion at this level which appears to be slightl y increased compared to the prior exam. These findings are superimposed on left hemilaminectomy and s uspected microdiscectomy changes. There is persistent effacement of the left lateral recess likely du e to a component of scar/granulation tissue. 2. Degenerative change throughout the remainder of the lumbar spine and lower thoracic spine, describ ed above. This is not appreciably changed compared to the prior exam. 3. New complex fluid collection within the subcutaneous fat of the inferior right flank and superior right buttock measuring approximately 5.0 cm. Given a history of recent lipoma resection, there is li sophie a postoperative hematoma or seroma. Electronically signed by: Christelle Pavon MD (06/15/2021 10:20 AM) [id number]
== END ==
LOC: KCIC MRI 08:30
PROVIDERS: ATTEND Physician Assistant Medical
DX: M47.815 Spondylosis without myelopathy or radiculopathy, thoracolumbar region (principal); M99.73 Connective tissue and disc stenosis of intervertebral foramina of lumbar region; M51.27 Other intervertebral disc displacement, lumbosacral region; M51.25 Other intervertebral disc displacement, thoracolumbar region; M48.8X7 Other specified spondylopathies, lumbosacral region; M48.07 Spinal stenosis, lumbosacral region; M43.17 Spondylolisthesis, lumbosacral region; D18.09 Hemangioma of other sites; M51.46 Schmorl's nodes, lumbar region
CPT/HCPCS: 72148

== ENCOUNTER 2021-07-08 18:48 | Emergency (ER) | payer MEDICAID ==
[~2021-07-08] VITALS: Ht 157.5 cm; Wt 100.0 kg
--- NOTE | 2021-07-08 19:40 | PHYS DOC ---
Past Medical History Past Medical History: Arthritis, Bronchitis, GERD, Kidney Stone, Sciatica, Sinusitis Additional Past Medical Histor: bulging discs, OSTEOARTHRITIS, STENOSIS Past Surgical History: Cholecystectomy, Gastric Bypass, Tubal ligation, Other Additional Past Surgical Histo: renal stent, sinus surgery Smoking Status: Current Every Day Smoker Alcohol Use: None Drug Use: None General Adult EDM: Chief Complaint: LOWER BACK PAIN OR INJURY HPI: HPI: Patient is a 41 year old female with history of chronic back pain with sciatica presenting today complaining of 8 out of 10 bilateral low back pain radiating to bilateral lower extremities, symptoms have been going on for 5 years. Patient states she is in the process of following up with a specialist to have back surgery. Patient denies any trauma. Denies any numbness or tingling to bilateral lower extremities, denies any loss of bowel/bladder function. She states her pain got worse last night, she states she has tried taking her Percocets with no relief. Review of Systems: Review of Systems: Constitutional: Denies fever or chills. [] GI: Denies abdominal pain, nausea, vomiting, bloody stools or diarrhea. [] : Denies dysuria. [] Musculoskeletal: Reports low back pain Integument: Denies rash. [] Neurologic: Denies headache, focal weakness or sensory changes. [] Psychiatric: Denies depression or anxiety. [] Heart Score: C/O Chest Pain: N/A Risk Factors: Risk Factors: DM, Current or recent (<one month) smoker, HTN, HLP, family history of CAD, obesity. Risk Scores: Score 0 - 3: 2.5% MACE over next 6 weeks - Discharge Home Score 4 - 6: 20.3% MACE over next 6 weeks - Admit for Clinical Observation Score 7 - 10: 72.7% MACE over next 6 weeks - Early Invasive Strategies Allergies: Allergies: Allergies Coded Allergies Type Severity Reaction Last Updated Verified No Known Drug Allergies 12/23/20 No Physical Exam: PE: Constitutional: Well developed, well nourished, no acute distress, non-toxic appearance. [] Abdomen: Bowel sounds normal, soft, no tenderness, no masses, no pulsatile masses. [] Skin: Warm, dry, no erythema, no rash. [] Back: No tenderness, no CVA tenderness. [] Extremities: No tenderness, no cyanosis, no clubbing, ROM intact, no edema. [] Neurologic: Alert and oriented X 3, normal motor function, normal sensory function, no focal deficits noted. [] Psychologic: Affect normal, judgement normal, mood normal. [] Current Patient Data: Vital Signs: Vital Signs Date Time Temp Pulse Resp B/P (MAP) Pulse Ox O2 Delivery O2 Flow Rate FiO2 07/08/21 19:17 98.1 98 18 124/75 (91) 95 Room Air 98.1 EKG: EKG: [] Radiology/Procedures: Radiology/Procedures: [] Course & Med Decision Making: Course & Med Decision Making Pertinent Labs and Imaging studies reviewed. (See chart for details) This a 41-year-old female patient presenting to the ED today with exacerbation of chronic low back pain, no known injury. No cauda equina syndrome symptoms. Encourage patient to follow-up with her supervisory it specialist. She was given pain relief in the ED and discharged. Encouraged to continue taking her Percocets at home Dragon Disclaimer: [place] Disclaimer: This electronic medical record was generated, in whole or in part, using a voice recognition dictation system. Departure Departure Impression: Primary Impression: Low back pain Qualified Codes: M54.42 - Lumbago with sciatica, left side; M54.41 - Lumbago with sciatica, right side Disposition: 01 HOME / SELF CARE / HOMELESS Condition: STABLE Referrals: PALMA CARDOZA PA-C (PCP) Follow-up with the supervisory it specialist and PCP as soon as possible Patient Instructions: Back Pain, Adult Additional Instructions: You were evaluated for chronic low back pain. Please follow-up with your primary care doctor and supervisory it specialist as soon as you can ZOILA GUZMÁN APRN Jul 08, 2021 19:40
[2021-07-08 19:59] VITALS: BP 119/84
[2021-07-08] MEDS ORDERED: diazePAM 5 MG TABLET PO ONE (20:00)
[2021-07-08] MEDS ORDERED: MORPHINE SULFATE 4 MG/ML INJ. IM ONE (20:00)
== END 2021-07-08 20:07 | disposition home or self-care (01) ==
LOC: ER 18:48
DX: M54.41 Lumbago with sciatica, right side (principal); M54.42 Lumbago with sciatica, left side; K21.9 Gastro-esophageal reflux disease without esophagitis; F17.200 Nicotine dependence, unspecified, uncomplicated; Z90.49 Acquired absence of other specified parts of digestive tract; Z98.84 Bariatric surgery status; Z98.51 Tubal ligation status
CPT/HCPCS: 96372; 99283; J2270

== ENCOUNTER → 2021-08-12 | Day surgery (SDC) | payer MEDICAID ==
[~2021-08-12] VITALS: Ht 157.5 cm; Wt 106.0 kg
[~2021-08-12] MED LIST changes: +LIDOCAINE 1%/EPI 1:100,000 20 ML VIAL. INJ ONE
[2021-08-12 10:51] VITALS: BP 128/89
--- NOTE | 2021-08-18 09:37 | PDOC4 ---
Operative Note Operative Note Date: August 122021 at 12:30 PM Preoperative diagnosis: Skin lesion right lower back Postoperative diagnosis: Same Procedure: Incisional biopsy x2 Surgeon: Kendrick Specimen: Skin biopsy Dictation: Patient is a 41-year-old female with complaints of a painful skin lesion on her right lower back. Procedure of incisional biopsy was explained to the patient detail risk benefits were also discussed occluding bleeding infection alternatives this procedure also discussed with patient who seemed to understand and gave a verbal written consent to have procedure performed. Patient was taken to the minor's room placed in a sitting position area over her right lower back was prepped and draped usual sterile fashion using ChloraPrep. Area around the lesion was injected with 1% lidocaine with epinephrine a elliptical incision was made with 15 blade scalpel incorporating the edge of the skin lesion and normal skin approximately 2 cm in length. The specimen was sent for pathology a punch biopsy was also performed of the midportion of the skin lesion. The elliptical incision was closed with single interrupted 3-0 nylon's. The punch biopsy site was cauterized. 4 x 4's and Medipore tape were applied as dressings. Patient tolerated procedure well was discharged home in stable condition all sponge instrument needle counts listed as correct estimated blood loss 5 mL SAM CHUNG MD Aug 18, 2021 09:37
== END | disposition home or self-care (01) ==
LOC: SURG 10:31
PROVIDERS: ATTEND Surgery
DX: L90.5 Scar conditions and fibrosis of skin (principal); L08.9 Local infection of the skin and subcutaneous tissue, unspecified; L83 Acanthosis nigricans; G47.30 Sleep apnea, unspecified; E66.9 Obesity, unspecified; K21.9 Gastro-esophageal reflux disease without esophagitis; F41.9 Anxiety disorder, unspecified; F32.9 Major depressive disorder, single episode, unspecified; Z98.51 Tubal ligation status; Z98.890 Other specified postprocedural states; Z79.899 Other long term (current) drug therapy
CPT/HCPCS: 11105; 11106; 88305; 88312; J3490

== ENCOUNTER 2021-08-24 23:09 | Emergency (ER) | payer MEDICAID ==
[~2021-08-24] VITALS: Ht 157.5 cm; Wt 100.0 kg
[~2021-08-24 23:09] MED LIST changes: -LIDOCAINE 1%/EPI 1:100,000 20 ML VIAL. INJ ONE
[2021-08-24 23:25] VITALS: BP 125/65
--- NOTE | 2021-08-24 23:58 | PHYS DOC ---
Past Medical History Past Medical History: Arthritis, Bronchitis, GERD, Kidney Stone, Sciatica, Sinusitis Additional Past Medical Histor: chronic back pain, back lipoma Past Surgical History: Other Additional Past Surgical Histo: back decompression Smoking Status: Current Every Day Smoker Alcohol Use: None Drug Use: None General Adult EDM: Chief Complaint: BACK PAIN - NO INJURY HPI: HPI: Patient is a 41 year old female with history of chronic low back pain with sciatica presenting to the ED today complaining of low back pain radiating to the right lower extremity, patient states pain is chronic 08/12/2021. 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 Patient states she does not have conclusive diagnosis of the lymphoma biopsy results. Denies any trauma. Denies any loss of bowel/bladder function. Describes the pain as sharp and intermittent worse on movement. Denies anything specifically relieving the pain, she states she has tried oxycodone with no relief. She is requesting Dilaudid. Review of Systems: Review of Systems: Constitutional: Denies fever or chills. []] : Denies dysuria. [] Musculoskeletal: Reports right low back pain radiating to the right lower extremity Integument: Denies rash. [] Neurologic: Denies headache, focal weakness or sensory changes. [] Psychiatric: Denies depression or anxiety. [] Heart Score: C/O Chest Pain: N/A Risk Factors: Risk Factors: DM, Current or recent (<one month) smoker, HTN, HLP, family history of CAD, obesity. Risk Scores: Score 0 - 3: 2.5% MACE over next 6 weeks - Discharge Home Score 4 - 6: 20.3% MACE over next 6 weeks - Admit for Clinical Observation Score 7 - 10: 72.7% MACE over next 6 weeks - Early Invasive Strategies Allergies: Allergies: Allergies Coded Allergies Type Severity Reaction Last Updated Verified latex Allergy Intermediate Rash 08/12/21 Yes Physical Exam: PE: Constitutional: Well developed, well nourished, no acute distress, non-toxic appearance. [] Skin: Warm, dry, no erythema, no rash. [] Back: Right low back with a scabbed area from a biopsy. No signs of infection to this region. Diffuse paraspinal muscle tenderness to the right lumbar spine, no midline lumbar spine tenderness. Positive straight leg raises on the right lower extremity at approximately 30 degrees. +2 bilateral pedal pulses. Cap refill less than 2 seconds bilateral lower extremities Extremities: No tenderness, no cyanosis, no clubbing, ROM intact, no edema. [] Neurologic: Alert and oriented X 3, normal motor function, normal sensory function, no focal deficits noted. [] Psychologic: Affect normal, judgement normal, mood normal. [] Current Patient Data: Vital Signs: Vital Signs Date Time Temp Pulse Resp B/P (MAP) Pulse Ox O2 Delivery O2 Flow Rate FiO2 08/24/21 23:25 98.3 89 20 125/65 (85) 97 Room Air 98.3 EKG: EKG: [] Radiology/Procedures: Radiology/Procedures: [] Course & Med Decision Making: Course & Med Decision Making Pertinent Labs and Imaging studies reviewed. (See chart for details) This a 41-year-old female patient well-known to this ED for chronic back pain presented today to be evaluated for exacerbation of chronic low back pain. Patient has no cauda equina syndrome symptoms. Patient requesting Dilaudid, 1 mg which was given in the ED and discharged to home. She typically follows up with her PCP and pain clinic. She also sees Dr. Marks. Provided return precautions and discharged in stable condition Nilton Disclaimer: [place] Disclaimer: This electronic medical record was generated, in whole or in part, using a voice recognition dictation system. Departure Departure Impression: Primary Impression: Low back pain Qualified Codes: M54.41 - Lumbago with sciatica, right side Additional Impression: Chronic sciatica of right side Disposition: 01 HOME / SELF CARE / HOMELESS Condition: STABLE Referrals: PALMA CARDOZA PA-C (PCP) follow up as soon as you can Patient Instructions: Back Pain, Adult, Sciatica Additional Instructions: You were evaluated in the emergency room for low back pain with sciatica. Please follow-up with your primary care doctor and pain clinic doctor as well as your general surgeon as soon as you can ZOILA GUZMÁN APRN Aug 24, 2021 23:58
[2021-08-25] MEDS ORDERED: HYDROmorphone 2 MG/ML INJ. IM ONE
== END 2021-08-25 00:30 | disposition home or self-care (01) ==
LOC: ER 23:09
DX: M54.41 Lumbago with sciatica, right side (principal); G89.29 Other chronic pain; K21.9 Gastro-esophageal reflux disease without esophagitis; F17.200 Nicotine dependence, unspecified, uncomplicated; Z91.040 Latex allergy status
CPT/HCPCS: 96372; 99283; J1170

== ENCOUNTER → 2021-09-17 | Outpatient (CLI) | payer MEDICAID ==
[2021-08-24 23:25] VITALS: BP 125/65
--- NOTE | 2021-09-17 13:39 | KCIC ---
EXAM: Chest, 2 views. HISTORY: Sinus congestion. COMPARISON: 10 90,020. FINDINGS: 2 views of the chest are obtained. There is no infiltrate, pleural effusion or pneumothorax . There is right suprahilar linear atelectasis or scarring. The heart is normal in size. IMPRESSION: No acute pulmonary finding. Electronically signed by: Christelle Pavon MD (09/17/2021 1:37 PM) [id number]
== END ==
LOC: KCIC 13:22
PROVIDERS: ATTEND Family Medicine
DX: R05.9 Cough, unspecified (principal); R09.81 Nasal congestion; F17.200 Nicotine dependence, unspecified, uncomplicated
CPT/HCPCS: 71046